=== PATIENT | female | born 1960 | race Caucasian/White ===

== ENCOUNTER 2019-08-04 12:33 | Outpatient (CLI) | payer OTHER, SELFPAY ==
--- NOTE | 2019-08-04 12:42 | MM_ITS ---
WS: [id number] SCREENING DIGITAL MAMMOGRAM WITH CAD HISTORY: SCREEN COMPARISON: 06/28/2018, 05/07/2017 Bilateral CC and MLO views submitted. Computer aided detection analyzed. Breast composition: There are scattered areas of fibroglandular density. Asymmetry on the LEFT CC pro jection measures 11 x 12 mm just medial to the nipple in the anterior breast. There is dense fibrogla ndular tissue in the upper outer quadrant where I believe this nodule may be centered versus in the c entral breast. There is a benign calcification in the RIGHT breast. LEFT breast: Spot compression views (CC and MLO). True ML. Ultrasound to follow if abnormality kojo carvalho. MM/[place] [id number] IMPRESSION: BI-RADS: 0-Incomplete: Need additional imaging evaluation FOLLOW UP: Need Additional Imaging
== END 2019-08-04 12:34 | disposition home or self-care (01) ==
PROVIDERS: PCP Family Medicine; Visit Provider Obstetrics & Gynecology
DX: Z12.31 Encounter for screening mammogram for malignant neoplasm of breast (principal); R92.1 Mammographic calcification found on diagnostic imaging of breast
CPT/HCPCS: 77067

== ENCOUNTER 2019-09-04 08:58 | Outpatient (CLI) | payer OTHER, SELFPAY ==
--- NOTE | 2019-09-04 09:00 | MM_ITS ---
WS: [id number] ADDITIONAL VIEWS LEFT MAMMOGRAM LEFT BREAST ULTRASOUND HISTORY: Left breast asymmetry COMPARISON: 06/28/2018 and 08/04/2019. LEFT MAMMOGRAM: Spot compression views and true ML. Increasing slightly lobulated mass 9:00 axis of the LEFT breast is again identified measuring 15 mm. Dense scattered fibroglandular asymmetries in the upper outer quadrant. No discrete mass. LEFT BREAST ULTRASOUND 2-D and color Doppler imaging submitted. 9:00 axis, 2 cm from the nipple is a lobulated cyst. There is either 2 adjacent cysts or a cyst with a lobulation containing a soft tissue nodule. No increased vascularity in the soft tissue nodule. Thi s is new since the prior ultrasound of 05/21/2017. Due to the lobulated soft tissue nodule further jah luation is necessary. Irregular lobulated soft tissue nodule at 12:00, 3 cm from the nipple measures 1.3 x 1.0 x 1.2 cm. Th ere is no increased vascularity. There are several septations and lobulations. This may be a small co mplex cluster cyst. Due to its shape and appearance biopsy is recommended. There are additional small er cysts throughout the breast. 2. At 9:00 there is a lobulated cyst with soft tissue nodule. Ultrasound biopsy of the nodule is lauren mmended. 3. At 12:00 there is a lobulated soft tissue mass for which ultrasound-guided biopsy is recommended. MM/[place] [id number] IMPRESSION: BI-RADS: 4A-Suspicious: Low FOLLOW UP: Biopsy Recommended 1. There are 2 areas in the LEFT breast for which biopsy and/or aspiration are recommended.
--- NOTE | 2019-09-04 09:30 | US_ITS ---
WS: [id number] ADDITIONAL VIEWS LEFT MAMMOGRAM LEFT BREAST ULTRASOUND HISTORY: Left breast asymmetry COMPARISON: 06/28/2018 and 08/04/2019. LEFT MAMMOGRAM: Spot compression views and true ML. Increasing slightly lobulated mass 9:00 axis of the LEFT breast is again identified measuring 15 mm. Dense scattered fibroglandular asymmetries in the upper outer quadrant. No discrete mass. LEFT BREAST ULTRASOUND 2-D and color Doppler imaging submitted. 9:00 axis, 2 cm from the nipple is a lobulated cyst. There is either 2 adjacent cysts or a cyst with a lobulation containing a soft tissue nodule. No increased vascularity in the soft tissue nodule. Thi s is new since the prior ultrasound of 05/21/2017. Due to the lobulated soft tissue nodule further jah luation is necessary. Irregular lobulated soft tissue nodule at 12:00, 3 cm from the nipple measures 1.3 x 1.0 x 1.2 cm. Th ere is no increased vascularity. There are several septations and lobulations. This may be a small co mplex cluster cyst. Due to its shape and appearance biopsy is recommended. There are additional small er cysts throughout the breast. 2. At 9:00 there is a lobulated cyst with soft tissue nodule. Ultrasound biopsy of the nodule is lauren mmended. 3. At 12:00 there is a lobulated soft tissue mass for which ultrasound-guided biopsy is recommended. US/US breast LT limited* [id number] IMPRESSION: BI-RADS: 4A-Suspicious: Low FOLLOW UP: Biopsy Recommended 1. There are 2 areas in the LEFT breast for which biopsy and/or aspiration are recommended.
== END 2019-09-04 08:59 | disposition home or self-care (01) ==
LOC: RADSHAW 09:07
PROVIDERS: PCP Family Medicine; Visit Provider Obstetrics & Gynecology
DX: N64.89 Other specified disorders of breast (principal)
CPT/HCPCS: 76642; 77065

== ENCOUNTER 2019-09-17 14:50 | Outpatient (CLI) | payer OTHER, SELFPAY ==
--- NOTE | 2019-09-17 15:00 | US_ITS ---
WS: [id number] ULTRASOUND-GUIDED LEFT BREAST BIOPSY x 2 HISTORY: abnormal u/s and mammo COMPARISON: 09/04/2019, 05/21/2017 and 08/04/2019 Procedure, risks and complications are explained to the patient. Medications are reviewed. Consent is obtained. Masses in the LEFT breast are localized with ultrasound. Skin is cleansed with ChloraPrep and anesthe tized with 1% buffered lidocaine. Small dermatome is made. Under sterile conditions mass is biopsied with a 14-gauge Achieve needle. Multiple core biopsies are performed. Material placed in formalin and sent to pathology for review. No complications encountered. LEFT breast mass at 9:00: Lobulated soft tissue mass with a solid component. Biopsy performed in the mass nearly completely collapses after the first few biopsies. A clip is placed. LEFT breast mass at 12:00, lobulated cystic mass nearly completely collapses after biopsy. A clip is placed. Breast tissue marker (Bard ultrasound enhanced ribbon): Yes within each biopsy site. Patient left the radiology suite with no complications. Patient is instructed to return to [facility] or [facility] with any concerns. 1. Uncomplicated core needle biopsy LEFT breast mass at 9:00. 2. Uncomplicated core needle biopsy LEFT breast mass at 12:00. US/[place] [id number] IMPRESSION: PATHOLOGY: Fibrocystic change with adipose fat. No malignancy. RECOMMENDATION: Diagnostic LEFT mammogram 6 months. PATHOLOGY: Fibrocystic changes with adipose fat. No malignancy. RECOMMENDATION: Diagnostic LEFT mammogram 6 months.
== END 2019-09-17 14:51 | disposition home or self-care (01) ==
LOC: RAD 14:53
PROVIDERS: PCP Family Medicine; Visit Provider Obstetrics & Gynecology
DX: R92.8 Other abnormal and inconclusive findings on diagnostic imaging of breast (principal); N63.25 Unspecified lump in the left breast, overlapping quadrants; N60.12 Diffuse cystic mastopathy of left breast
CPT/HCPCS: 19083; 19084; 88305; J2001

== ENCOUNTER → 2019-09-29 15:20 | Outpatient (BNVA) | payer OTHER, SELFPAY | PROVIDERS: PCP Family Medicine; Visit Provider Obstetrics & Gynecology | DX: N39.41 Urge incontinence (principal); Z78.0 Asymptomatic menopausal state | CPT/HCPCS: 80053; 81000; 87077; 87086; 87186 ==

== ENCOUNTER 2020-05-19 15:31 | Outpatient (CLI) | payer OTHER, SELFPAY | END 2020-05-19 15:32 | disposition home or self-care (01) | LOC: SPT 15:31 | PROVIDERS: PCP Family Medicine; Visit Provider Orthopaedic Surgery | DX: Z46.89 Encounter for fitting and adjustment of other specified devices (principal); S52.591D Other fractures of lower end of right radius, subsequent encounter for closed fracture with routine healing; X58.XXXD Exposure to other specified factors, subsequent encounter | CPT/HCPCS: 73110; L3908 ==

== ENCOUNTER → 2020-06-09 14:36 | Outpatient (BNVA) | payer OTHER, SELFPAY | PROVIDERS: PCP Family Medicine; Visit Provider Orthopaedic Surgery | DX: S52.501A Unspecified fracture of the lower end of right radius, initial encounter for closed fracture (principal) | CPT/HCPCS: 73110 ==

== ENCOUNTER 2020-10-25 13:40 | Outpatient (CLI) | payer OTHER, SELFPAY ==
--- NOTE | 2020-10-25 13:49 | MM_ITS ---
WS: [id number] BILATERAL DIGITAL DIAGNOSTIC MAMMOGRAM MAMMOGRAPHY WITH CAD CLINICAL INFORMATION: Z87.898 - Personal history of other specified condition COMPARISON: August 04, 2019 TECHNIQUE: Bilateral CC, MLO, and ML views. FINDINGS: Scattered fibroglandular densities bilaterally. Punctate and lucent centered calcifications. Biopsy m arkers left breast. No suspicious focal mass, asymmetry, calcifications, or architectural distortion. No evidence of lyn gnancy. MM/[place] [id number] IMPRESSION: BI-RADS: 2-Benign FOLLOW UP: 1 Year Follow-up Recommend return to annual screening mammography.
== END 2020-10-25 13:41 | disposition home or self-care (01) ==
LOC: RADSHAW 13:46
PROVIDERS: PCP Family Medicine; Visit Provider Obstetrics & Gynecology
DX: Z85.3 Personal history of malignant neoplasm of breast (principal); N64.89 Other specified disorders of breast
CPT/HCPCS: 77066

== ENCOUNTER 2021-12-14 13:41 | Outpatient (CLI) | payer OTHER, SELFPAY ==
--- NOTE | 2021-12-14 13:49 | MM_ITS ---
WS: [id number] BILATERAL SCREENING DIGITAL TOMOSYNTHESIS MAMMOGRAM WITH CAD HISTORY: SCREENING COMPARISON: 2020, 09/04/2019, 6 08/04/2019 Bilateral CC and MLO views with tomosynthesis and synthetic mammography submitted. Computer aided det ection analyzed. Breast composition: The breasts are heterogeneously dense, which may obscure small masses. No suspici ous masses, microcalcifications or architectural distortion. Biopsy clips in the LEFT breast. There a re several calcifications and nodules which are all stable. No new area of distortion or mass. MM/[place] [id number] IMPRESSION: BI-RADS: 2-Benign FOLLOW UP: 1 Year Follow-up
== END 2021-12-14 13:42 | disposition home or self-care (01) ==
LOC: RAD 13:45
PROVIDERS: PCP Family Medicine; Visit Provider Obstetrics & Gynecology
DX: Z12.31 Encounter for screening mammogram for malignant neoplasm of breast (principal)
CPT/HCPCS: 77063; 77067

== ENCOUNTER → 2022-01-06 08:25 | Outpatient (BNVA) | payer OTHER, SELFPAY | PROVIDERS: PCP Family Medicine; Visit Provider Clinical Nurse Specialist Adult Health | DX: R32 Unspecified urinary incontinence (principal); N30.01 Acute cystitis with hematuria; E78.5 Hyperlipidemia, unspecified | CPT/HCPCS: 81000; 87077; 87086; 87184 ==

== ENCOUNTER → 2022-10-10 12:38 | Outpatient (BNVA) | payer OTHER, SELFPAY | PROVIDERS: PCP Family Medicine; Visit Provider Family Medicine | DX: E03.9 Hypothyroidism, unspecified (principal); F41.8 Other specified anxiety disorders; E78.5 Hyperlipidemia, unspecified; I10 Essential (primary) hypertension | CPT/HCPCS: 80053; 80061; 84443; 85025 ==

== ENCOUNTER 2022-12-22 14:11 | Outpatient (CLI) | payer OTHER, SELFPAY ==
--- NOTE | 2022-12-22 14:23 | MM_ITS ---
WS: [id number] BILATERAL 3D TOMOSYNTHESIS DIGITAL SCREENING MAMMOGRAPHY WITH CAD CLINICAL INFORMATION: SCREENING HISTORY: Screening mammogram. No current complaints. COMPARISON: 12/14/2021 TECHNIQUE: Bilateral CC and MLO views. FINDINGS: The breasts are composed of heterogeneous fibroglandular density tissue, which can limit the detectio n of small underlying mass lesions. No suspicious mass, asymmetry, calcifications, or architectural d istortion. No evidence of malignancy. Biopsy clips LEFT breast. Incidental punctate and lucent center ed calcifications. Stable nodular RIGHT breast tissue. IMPRESSION: MM/[place] [id number] BI-RADS: 2-Benign FOLLOW UP: 1 Year Follow-up Recommend return to annual screening mammography.
== END 2022-12-22 14:12 | disposition home or self-care (01) ==
PROVIDERS: PCP Family Medicine; Visit Provider Family Medicine
DX: Z12.31 Encounter for screening mammogram for malignant neoplasm of breast (principal)
CPT/HCPCS: 77063; 77067

== ENCOUNTER → 2023-12-03 11:28 | Outpatient (BNVA) | payer OTHER, SELFPAY | PROVIDERS: PCP Family Medicine; Visit Provider Family Medicine | DX: Z00.00 Encounter for general adult medical examination without abnormal findings (principal); I10 Essential (primary) hypertension; E78.5 Hyperlipidemia, unspecified; F41.8 Other specified anxiety disorders; E03.9 Hypothyroidism, unspecified | CPT/HCPCS: 80053; 80061; 84443; 85025 ==

== ENCOUNTER 2024-06-20 11:33 | Outpatient (CLI) | payer OTHER, SELFPAY ==
--- NOTE | 2024-06-20 11:37 | XR_ITS ---
WS: [id number] Exam: XR chest 2V* [id number] Date/Time of Exam: 06/20/2024 11:38 AM Reason For Exam: R05.9 - Cough, unspecified Comparison 07/31/2008. Lungs are clear and fully expanded. Normal cardiomediastinal silhouette and regional bony elements. No pleural effusions. XR/XR chest 2V* [id number] IMPRESSION: 1. Normal chest.
[2024-06-20 12:28] LABS: Basophils # 0.1 10^3/uL (0.0-0.1); Basophils % 0.8 %; Eosinophils # 1.1 10^3/uL (0.0-0.8); Eosinophils % 9.1 %; Hematocrit 34.8 % (36-47); Lymphocytes # 2.5 10^3/uL (0.8-4.8); Lymphocytes % 20.9 %; Mean Corpuscular HGB Conc 33.3 g/dL (30-55); Mean Corpuscular Hemoglobin 33.9 pg (27-33); Mean Corpuscular Volume 101.8 fl (85-98); Monocytes # 0.5 10^3/uL (0.2-0.9); Monocytes % 3.9 %; Neutrophils # 7.59 10^3/uL (1.8-7.7); Neutrophils % 63.7 %; Nucleated Red Blood Cells % 0.2 %; Platelet Count 330 10^3/cmm (157-399); Red Blood Count 3.42 10^6/uL (3.85-5.65); White Blood Count 11.94 10^3/uL (3.29-11.43)
[2024-06-20 12:29] LABS: Erythrocyte Sedimentation Rate 61 mm/hr (0-15)
[2024-06-20 12:45] LABS: Alanine Aminotransferase 16 U/L (0-33); Albumin Level 3.9 g/dL (3.5-5.2); Alkaline Phosphatase 75 U/L (35-105); Anion Gap 15.2 (5-19); Aspartate Amino Transferase 14 U/L (0-32); Blood Urea Nitrogen 12 mg/dL (8-23); C Reactive Protein 49.8 mg/L (0.0-4.9); Calcium 9.4 mg/dL (8.5-10.5); Carbon Dioxide 27 mmol/L (22-29); Chloride 102 mmol/L (98-107); Globulin 3.4 g/dL (1.3-4.6); Glomerular Filtration Rate 55.8 mL/min (90-130); Glucose 104 mg/dL (65-115); Osmolality Calculated 292 mOsm/kg (285-295); Potassium 3.2 mmol/L (3.5-5.1); Sodium 141 mmol/L (136-145); Total Bilirubin 0.3 mg/dL (0.15-1.2); Total Protein 7.3 g/dL (6.6-8.7)
== END 2024-06-20 11:34 | disposition home or self-care (01) ==
LOC: LAB 11:35
PROVIDERS: PCP Family Medicine; Visit Provider Family Medicine
DX: R05.9 Cough, unspecified (principal); R09.81 Nasal congestion; M79.10 Myalgia, unspecified site; R50.9 Fever, unspecified; E03.9 Hypothyroidism, unspecified; M19.90 Unspecified osteoarthritis, unspecified site
CPT/HCPCS: 36415; 71046; 80053; 85025; 85651; 86140; 86618; 86666; 86757; 86777

== ENCOUNTER 2024-07-15 13:25 | Emergency (ER) | payer OTHER, SELFPAY ==
--- NOTE | 2024-07-15 13:30 | ECG_ITS ---
[facility] [facility] 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 Measurements Intervals [place] Rate: 98 P: 56 CT: 165 QRS: 42 QRSD: 93 T: 44 QT: 363 QTc: 464 Interpretive Statements SINUS RHYTHM WITH SINUS ARRHYTHMIA possible old septal RI INCOMPLETE RIGHT BUNDLE BRANCH BLOCK [90+ ms QRS DURATION, TERMINAL R IN V1/V2, 40+ ms S IN I/aVL/V4/V5/V6] NONSPECIFIC ST & T-WAVE ABNORMALITY No previous ECG available for comparison Electronically Signed On 07-15-2024 21:20:03 CDT by Tucker Dodge M.D. [id number] [id number]
[2024-07-15 13:36] VITALS: BP 160/72; PULSE 94; RESP 20; TEMP 36.9; O2SAT 91
[2024-07-15 14:53] LABS: Basophils # 0.1 10^3/uL (0.0-0.1); Basophils % 0.4 %; Eosinophils # 0.3 10^3/uL (0.0-0.8); Eosinophils % 1.1 %; Hematocrit 34.1 % (36-47); Lymphocytes # 1.2 10^3/uL (0.8-4.8); Lymphocytes % 3.8 %; Mean Corpuscular HGB Conc 32.8 g/dL (30-55); Mean Corpuscular Hemoglobin 34.5 pg (27-33); Mean Corpuscular Volume 104.9 fl (85-98); Mean Platelet Volume 10.1 fL (7.4-10.4); Monocytes # 0.6 10^3/uL (0.2-0.9); Monocytes % 1.9 %; Neutrophils # 28.53 10^3/uL (1.8-7.7); Neutrophils % 91.5 %; Nucleated Red Blood Cells % 0 %; Platelet Count 274 10^3/cmm (157-399); Red Blood Count 3.25 10^6/uL (3.85-5.65); Red Cell Distribution Width 14.3 % (12.1-15.1)
[2024-07-15 15:03] LABS: White Blood Count 31.16 10^3/uL (3.29-11.43)
[2024-07-15 15:13] LABS: Alanine Aminotransferase 20 U/L (0-33); Alkaline Phosphatase 81 U/L (35-105); Anion Gap 17.8 (5-19); Aspartate Amino Transferase 19 U/L (0-32); Blood Urea Nitrogen 9 mg/dL (8-23); Calcium 9.2 mg/dL (8.5-10.5); Carbon Dioxide 25 mmol/L (22-29); Chloride 104 mmol/L (98-107); Creatinine Clr Calc Pharmacy 71.4512; Globulin 2.9 g/dL (1.3-4.6); Glomerular Filtration Rate 55.8 mL/min (90-130); Glucose 198 mg/dL (65-115); Osmolality Calculated 300 mOsm/kg (285-295); Potassium 3.8 mmol/L (3.5-5.1); Sodium 143 mmol/L (136-145); Total Bilirubin 0.5 mg/dL (0.15-1.2); Total Protein 6.9 g/dL (6.6-8.7)
[2024-07-15 15:20] LABS: Troponin(5th) Baseline 11 ng/L (0-10)
--- NOTE | 2024-07-15 16:14 | XRR_ITS ---
PROCEDURE INFORMATION: Exam: XR Chest Exam date and time: 07/15/2024 4:32 PM Age: 64 years old Clinical indication: Pain; Angina pectoris; Additional info: Cp TECHNIQUE: Imaging protocol: Radiologic exam of the chest. Views: 1 view. COMPARISON: CR XR chest 2V* [id number] 06/20/2024 11:43 AM FINDINGS: Lungs: Unremarkable. No consolidation. Pleural spaces: Unremarkable. No pleural effusion. No pneumothorax. Heart/Mediastinum: Unremarkable. No cardiomegaly. Bones/joints: Unremarkable. XR/XR chest 1V portable [id number] IMPRESSION: No acute findings.
--- NOTE | 2024-07-15 16:35 | ECG_ITS ---
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 Measurements Intervals [place] Rate: 90 P: 65 [place]: 174 QRS: 51 QRSD: 93 T: 61 QT: 377 QTc: 463 Interpretive Statements SINUS RHYTHM WITH SINUS ARRHYTHMIA INCOMPLETE RIGHT BUNDLE BRANCH BLOCK [90+ ms QRS DURATION, TERMINAL R IN V1/V2, 40+ ms S IN I/aVL/V4/V5/V6] MINIMAL ST DEPRESSION [0.025+ mV ST DEPRESSION] Compared to ECG 07/15/2024 13:34:19 ST (T wave) deviation now present T-wave abnormality no longer present Electronically Signed On 07-16-2024 08:43:42 CDT by Tucker Dodge M.D. [email or web address] [id number]
[2024-07-15 17:23] LABS: Troponin 5 2HR 9.51 ng/L (0-10); Troponin 5 2HR Delta -1.49 ABS# (0-10)
--- NOTE | 2024-07-15 17:31 | CTR_ITS ---
PROCEDURE INFORMATION: Exam: CTA Chest With Contrast Exam date and time: 07/15/2024 6:12 PM Age: 64 years old Clinical indication: Pain; Chest pressure; Additional info: Chest pain TECHNIQUE: Imaging protocol: Computed tomographic angiography of the chest with contrast. Exam focused on the arteries. 3D rendering (Not supervised by radiologist): MIP and/or 3D reconstructed images were created by the technologist. Radiation optimization: All CT scans at this facility use at least one of these dose optimization techniques: automated exposure control; mA and/or kV adjustment per patient size (includes targeted exams where dose is matched to clinical indication); or iterative reconstruction. Contrast material: OMNIPAQUE 350; Contrast volume: 78 ml; Contrast route: INTRAVENOUS (IV); COMPARISON: CR XR chest 1V portable [id number] 07/15/2024 4:32 PM RADIATION DOSE METRICS: Total DLP (mGy-cm): 459.79 FINDINGS: Pulmonary arteries: Normal. No pulmonary emboli. Aorta: Unremarkable. No aortic aneurysm. No aortic dissection. Lungs: Unremarkable. No consolidation. No masses. Pleural spaces: Unremarkable. No pneumothorax. No pleural effusion. Heart: Unremarkable. No cardiomegaly. No pericardial effusion. Lymph nodes: Unremarkable. No enlarged lymph nodes. Diaphragm: Small hiatal hernia. Liver: Hepatic steatosis. Bones/joints: Unremarkable. No acute fracture. Soft tissues: Unremarkable. CT/CT angio chest PE protcl [id number] IMPRESSION: No acute findings including no evidence of pulmonary embolism.
[2024-07-15 18:00] VITALS: BP 157/74; PULSE 80; O2SAT 95
[2024-07-15] MEDS: iohexol 350 mg/mL 500 mL Btl (per mL) IV (18:28)
[2024-07-15] MEDS: sodium chloride 0.9% 1,000 ML 999 ML IV (19:07)
--- NOTE | 2024-07-15 20:24 | ECG_ITS ---
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 Measurements Intervals [place] Rate: 81 P: 56 ID: [id number] QRS: 35 QRSD: 79 T: 52 QT: 385 QTc: 448 Interpretive Statements SINUS RHYTHM POSSIBLE RIGHT VENTRICULAR CONDUCTION DELAY [RSR (QR) IN V1/V2] SEPTAL MYOCARDIAL INFARCTION , OF INDETERMINATE AGE [40+ ms Q WAVE IN V1/V2] Compared to ECG 07/15/2024 16:35:22 Myocardial infarct finding now present Sinus arrhythmia no longer present Incomplete right bundle-branch block no longer present ST (T wave) deviation no longer present Electronically Signed On 07-16-2024 08:41:18 CDT by Tucker Dodge M.D. [id number] [id number]
--- NOTE | 2024-07-15 20:34 | ED_ITS ---
HPI - Chest Pain 2 General: Chief Complaint: Chest Pain Stated Complaint: chest pain/sosb Time Seen by Provider: 07/15/24 16:32 History of Present Illness: 64-year-old female is presenting with an episode of chest pain this morning. She states has been having a cough for the past 2 months, was treated for it by PCP with doxycycline and prednisone over 3 weeks ago. She has had some persistent cough and some low-grade fevers on and off. Had a tick panel sent has been follow-up with her primary doctor but this morning had a cough that resulted in anterior chest pain went to an urgent care who referred her to the emergency department for possible PE workup. She states her pain has resolved she denies any dyspnea no fever at this time. No nausea no vomiting no abdominal pain no rashes no headache no sore throat or earache no urinary symptoms. Associated symptoms: Deny abdominal pain, dyspnea, fever(s), nausea, palpitations or vomiting Related Data Previous Rx's ?Medication ?Instructions ?Recorded losartan 100 1 tab PO DAILY #90 tabs 11/24 12/17 mg-hydrochlorothiazide 25 mg tablet lovastatin 20 mg tablet 20 mg PO DAILY #90 tabs 11/24 12/17 escitalopram oxalate 20 mg tablet 20 mg PO DAILY #90 t abs 04/10/24 zolpidem 10 mg tablet (Ambien) 10 mg PO .nightly #30 t abs 04/10/24 losartan 100 mg tablet 100 mg PO DAILY #30 tabs Allergies Allergy/AdvReac Type Severity Reaction Status Date / Time No Known Allergies Allergy Verified 06/19/24 14:32 Review of Systems 2 Const: Reports: chills and body aches; Denies: fever(s) Eyes: Denies: change in vision ENMT: Denies: throat pain Card: Reports: chest pain; Denies: palpitations, irregular heart rhythm, edema, swelling of feet/ankles or dyspnea on exertion Resp: Reports: non-productive cough; Denies: dyspnea or wheezing GI: Denies: abdominal pain, nausea, vomiting or diarrhea : Denies: flank pain, difficulty voiding, dysuria, urinary frequency, urinary urgency or urinary hesitancy Musc: Denies: back pain or extremity pain Skin/Breast: Denies: rash Neuro: Denies: headache(s), numbness in extremities, weakness in extremities or difficulty walking [facility] 2 PFSH: Medical History Depression with anxiety Hyperlipidemia Hypertension Insomnia Menopause Surgical History History of dilation and curettage (~1987) Treatment of miscarriage History of total vaginal hysterectomy (~1989) Performed due to abnormal Paps Family History Father Hypertension Hypercholesteremia Mother Hypertension Hypercholesteremia Breast cancer Grandmother Diabetes maternal Social History (Updated 10/23/22 @ 12:23 by Natalie Olsen LPN) Smoking and tobacco/nicotine status: never used tobacco/nicotine Alcohol intake: current Alcohol intake frequency: holidays/special occasions only Substance/Drug Use: never Physical Exam 2 Const: COMMON NORMALS: no acute distress, patient oriented x3 and alert G ENERAL APPEARANCE: cooperative and comfortable HENMT: COMMON NORMALS: normocephalic and atraumatic HEAD & SCALP: n ormocephalic and atraumatic Eye: COMMON NORMALS: Equal, round and reactive pupils present, EOMs intact bilaterally and conjunctivae normal CONJUNCTIVA: Yes conjunctivae normal P UPIL: Yes Equal, round and reactive pupils present Neck/C-Spine: COMMON NORMALS: full ROM, no lymphadenopathy, supple, no meningeal signs and no JVD Lymph: LYMPHATIC: no lymphadenopathy noted Resp: COMMON NORMALS: normal respiratory effort, No retractions, No use of accessory muscles and clear to auscultation bilaterally AUSCULTATION: clear to auscultation bilaterally Cardio: COMMON NORMALS: no JVD, regular rate, regular rhythm, S1 normal heart sound present and S2 normal heart sound present RATE: regular rate RHYTHM: regular rhythm HEART SOUNDS: S1 normal heart sound present and S2 normal heart sound present GI: COMMON NORMALS: Normal to inspection, nondistended, normoactive bowel sounds present, Soft to palpation and non-tender PALPATION: Yes Soft to palpation : COMMON NORMALS: Yes no CVA tenderness BLADDER/KIDNEY EXAM: Yes no CVA tenderness Back/Pelvis: COMMON NORMALS: no CVA tenderness Extremity: COMMON NORMALS: normal to inspection, full ROM and capillary refill normal Neuro: COMMON NORMALS: patient oriented x3 SENSORIUM/ORIENTATION: Yes alert MENINGEAL SIGNS: Yes no meningeal signs Skin: COMMON NORMALS: no rashes or lesions noted GENERAL SKIN EXAM: no rashes or lesions noted Course 2 Vital Signs: Vital signs: Vital Signs Temperature 98.5 F 07/15/24 13:36 Pulse Rate 82 07/15/24 20:37 Respiratory Rate 20 H 07/15/24 13:36 Blood Pressure 181/75 07/15/24 20:37 Pulse Oximetry 95 07/15/24 20:37 Oxygen Delivery Me thod Room Air 07/15/24 20:37 MDM - Chest Pain Medical Decision Making Workup remarkable for CTA that demonstrates no acute findings no PE no pulmonary edema no pneumonia. She does have a leukocytosis that is marked of 31 but no other fever or focus for infectious process labs otherwise without significant abnormalities. Notably troponin negative x 2 rules out myocardial injury or infarction. Discussed results with the patient and plan for outpatient follow- up with hematology, will refer will provide referral. Case discussed with oncology Dr. Pedro who recommends outpatient follow-up and they can follow-up with her. Otherwise patient is comfortable stable for discharge and outpatient follow-up. Lab Data 07/15/24 14:38 07/15/24 14:38 Radiology Impressions Chest X-Ray 07/15/24 16:14 IMPRESSION: No acute findings. Chest CTA 07/15/24 17:31 IMPRESSION: No acute findings including no evidence of pulmonary embolism. Laboratory Results WBC 31.16 10^3/uL (3.29-11.43) H* 07/15/24 14:38 RBC 3.25 10^6/uL (3.85-5.65) L 07/15/24 14:38 Hgb 11.20 g/dL (11.27-16.99) L 07/15/24 14:38 Hct 34.1 % (36-47) L 07/15/24 14:38 MCV 104.9 fl (85-98) H 07/15/24 14:38 MCH 34.5 pg (27-33) H 07/15/24 14:38 MCHC 32.8 g/dL (30-55) 07/15/24 14:38 RDW 14.3 % (12.1-15.1) 07/15/24 14:38 Plt Count 274 10^3/cmm (157-399) 07/15/24 14:38 MPV 10.1 fL (7.4-10.4) 07/15/24 14:38 Neut % (Auto) 91.5 % 07/15/24 14:38 Lymph % (Auto) 3.8 % 07/15/24 14:38 [place] % (Auto) 1.9 % 07/15/24 14:38 Eos % (Auto) 1.1 % 07/15/24 14:38 Baso % (Auto) 0.4 % 07/15/24 14:38 Neut # (Auto) 28.53 10^3/uL (1.8-7.7) H 07/15/24 14:38 Lymph # (Auto) 1.2 10^3/uL (0.8-4.8) 07/15/24 14:38 [place] # (Auto) 0.6 10^3/uL (0.2-0.9) 07/15/24 14:38 Eos # (Auto) 0.3 10^3/uL (0.0-0.8) 07/15/24 14:38 Baso # (Auto) 0.1 10^3/uL (0.0-0.1) 07/15/24 14:38 Nucleated RBC % (auto) 0 % 07/15/24 14:38 Nucleated RBCs # 0.0 /100WBC 07/15/24 14:38 Sodium 143 mmol/L (136-145) 07/15/24 14:38 Potassium 3.8 mmol/L (3.5-5.1) 07/15/24 14:38 Chloride 104 mmol/L (98-107) 07/15/24 14:38 Carbon Dioxide 25 mmol/L (22-29) 07/15/24 14:38 Anion Gap 17.8 (5-19) 07/15/24 14:38 BUN 9 mg/dL (8-23) 07/15/24 14:38 Creatinine 1.0 mg/dL (0.5-0.9) H 07/15/24 14:38 GFR Calculation 55.8 mL/min (90-130) L 07/15/24 14:38 Glucose 198 mg/dL (65-115) H 07/15/24 14:38 Calculated Osmolality 300 mOsm/kg (285-295) H 07/15/24 14:38 Calcium 9.2 mg/dL (8.5-10.5) 07/15/24 14:38 Total Bilirubin 0.5 mg/dL (0.15-1.2) 07/15/24 14:38 AST 19 U/L (0-32) 07/15/24 14:38 ALT 20 U/L (0-33) 07/15/24 14:38 Alkaline Phosphatase 81 U/L (35-105) 07/15/24 14:38 Troponin T Baseline 11 ng/L (0-10) H 07/15/24 14:38 Troponin T 120 Minute 9.51 ng/L (0-10) 07/15/24 16:38 Delta Troponin T -1.49 ABS# (0-10) L 07/15/24 16:38 Total Protein 6.9 g/dL (6.6-8.7) 07/15/24 14:38 Albumin 4.0 g/dL (3.5-5.2) 07/15/24 14:38 Globulin 2.9 g/dL (1.3-4.6) 07/15/24 14:38 All radiology interpretation(s) finalized by discharge Discharge Plan Discharge Patient Disposition: Home Clinical Impression: Chest pain, Leukocytosis, unspecified Condition: Stable Prescriptions: No Action lovastatin 20 mg tablet 20 mg PO DAILY Qty: 90 3RF losartan-hydrochlorothiazide 100-25 mg tablet 1 tab PO DAILY Qty: 90 3RF escitalopram oxalate 20 mg tablet 20 mg PO DAILY Qty: 90 3RF zolpidem [Ambien] 10 mg tablet 10 mg PO .nightly Qty: 30 5RF losartan 100 mg tablet 100 mg PO DAILY Qty: 30 1RF Discharge Orders: Discharge ED (Routine); Ordered 07/15/24 Ordered By: Hola Perez Referrals: Brooke Pedro MD [Hospitalist] - Javier Mitchell DO [Primary Care Provider] - Patient Instructions: Leukocytosis (ED) Print Language: [place] Arabian Coding Level of Care Code ED Landing Signal Officer for Jocelyng Earlene
[2024-07-15 20:37] VITALS: BP 181/75; PULSE 82; O2SAT 95
[2024-07-15 21:00] VITALS: BP 181/75; PULSE 77; O2SAT 96
--- NOTE | 2024-07-16 08:36 | DCPLANNER ---
Message sent to PCP
== END 2024-07-15 21:07 | disposition home or self-care (01) ==
PROVIDERS: Family Medicine; Emergency Provider Emergency Medicine; PCP Family Medicine
DX: R07.9 Chest pain, unspecified (principal); D72.829 Elevated white blood cell count, unspecified; E78.5 Hyperlipidemia, unspecified; I10 Essential (primary) hypertension
CPT/HCPCS: 36415; 71045; 71275; 80053; 84484; 85025; 93005; 96360; 96361; 99285; J7030

== ENCOUNTER 2024-07-23 15:29 | Outpatient (CLI) | payer OTHER, SELFPAY ==
[2024-07-23 16:01] LABS: Basophils # 0.2 10^3/uL (0.0-0.1); Basophils % 0.9 %; Eosinophils # 1.3 10^3/uL (0.0-0.8); Eosinophils % 5.9 %; Hematocrit 30.3 % (36-47); Lymphocytes # 2.5 10^3/uL (0.8-4.8); Lymphocytes % 11.3 %; Mean Corpuscular HGB Conc 32.3 g/dL (30-55); Mean Corpuscular Hemoglobin 33.9 pg (27-33); Mean Corpuscular Volume 104.8 fl (85-98); Mean Platelet Volume 9.7 fL (7.4-10.4); Monocytes % 4.6 %; Neutrophils # 15.69 10^3/uL (1.8-7.7); Neutrophils % 72.4 %; Nucleated Red Blood Cells % 0.1 %; Platelet Count 404 10^3/cmm (157-399); Red Blood Count 2.89 10^6/uL (3.85-5.65); Red Cell Distribution Width 14.4 % (12.1-15.1); White Blood Count 21.69 10^3/uL (3.29-11.43)
[2024-07-23 17:14] LABS: Alanine Aminotransferase 14 U/L (0-33); Albumin Level 3.5 g/dL (3.5-5.2); Alkaline Phosphatase 77 U/L (35-105); Anion Gap 15.6 (5-19); Aspartate Amino Transferase 12 U/L (0-32); Blood Urea Nitrogen 10 mg/dL (8-23); Calcium 9.2 mg/dL (8.5-10.5); Carbon Dioxide 23 mmol/L (22-29); Chloride 105 mmol/L (98-107); Globulin 3.7 g/dL (1.3-4.6); Glomerular Filtration Rate 72.2 mL/min (90-130); Glucose 104 mg/dL (65-115); Osmolality Calculated 289 mOsm/kg (285-295); Potassium 3.6 mmol/L (3.5-5.1); Sodium 140 mmol/L (136-145); Total Bilirubin 0.4 mg/dL (0.15-1.2); Total Protein 7.2 g/dL (6.6-8.7)
== END 2024-07-23 15:30 | disposition home or self-care (01) ==
PROVIDERS: PCP Family Medicine; Visit Provider Family Medicine
DX: E87.6 Hypokalemia (principal); R71.8 Other abnormality of red blood cells; M79.10 Myalgia, unspecified site; R05.9 Cough, unspecified; R50.9 Fever, unspecified
CPT/HCPCS: 36415; 80053; 85025; 86140

== ENCOUNTER 2024-07-28 13:38 | Oncology outpatient (recurring) (ONCR) | payer OTHER, SELFPAY ==
[2024-07-28 14:28] LABS: Basophils # 0.2 10^3/uL (0.0-0.1); Basophils % 1.4 %; Eosinophils # 1.8 10^3/uL (0.0-0.8); Eosinophils % 13.8 %; Hematocrit 32.4 % (36-47); Lymphocytes # 2.4 10^3/uL (0.8-4.8); Lymphocytes % 18.6 %; Mean Corpuscular HGB Conc 32.4 g/dL (30-55); Mean Corpuscular Hemoglobin 33.8 pg (27-33); Mean Corpuscular Volume 104.2 fl (85-98); Mean Platelet Volume 9.8 fL (7.4-10.4); Monocytes # 0.7 10^3/uL (0.2-0.9); Monocytes % 5.6 %; Neutrophils # 7.45 10^3/uL (1.8-7.7); Neutrophils % 56.9 %; Nucleated Red Blood Cells % 0.3 %; Platelet Count 427 10^3/cmm (157-399); Red Blood Count 3.11 10^6/uL (3.85-5.65); Red Cell Distribution Width 14.2 % (12.1-15.1); White Blood Count 13.09 10^3/uL (3.29-11.43)
[2024-07-28 15:05] LABS: Vitamin B12 420 pg/mL (232-1245)
[2024-07-28 15:12] LABS: Folate Level 11.1 ng/mL (4.8-37.3)
[2024-07-28 15:36] LABS: Alanine Aminotransferase 15 U/L (0-33); Albumin Level 3.7 g/dL (3.5-5.2); Alkaline Phosphatase 72 U/L (35-105); Anion Gap 15.8 (5-19); Aspartate Amino Transferase 17 U/L (0-32); Blood Urea Nitrogen 11 mg/dL (8-23); Calcium 9.7 mg/dL (8.5-10.5); Carbon Dioxide 25 mmol/L (22-29); Chloride 105 mmol/L (98-107); Ferritin 232 ng/mL (15-150); Globulin 3.7 g/dL (1.3-4.6); Glomerular Filtration Rate 72.2 mL/min (90-130); Glucose 100 mg/dL (65-115); Iron 91 ug/dL (37-145); Osmolality Calculated 293 mOsm/kg (285-295); Percent Saturation 33.4 % (20-50); Potassium 3.8 mmol/L (3.5-5.1); Sodium 142 mmol/L (136-145); Total Bilirubin 0.2 mg/dL (0.15-1.2); Total Iron Binding Capacity 272 mcg/dl; Total Protein 7.4 g/dL (6.6-8.7); Unsaturated Iron Binding 181 ug/dL (112-347)
[2024-07-29 07:29] LABS: PROTEIN, TOTAL 7.3 g/dL (6.1-8.1)
[2024-07-30 12:59] LABS: ALBUMIN 3.6 g/dL (3.8-4.8); ALPHA 1 GLOBULIN 0.4 g/dL (0.2-0.3); ALPHA 2 GLOBULIN 0.8 g/dL (0.5-0.9); BETA 1 GLOBULIN 0.4 g/dL (0.4-0.6); BETA 2 GLOBULIN 0.5 g/dL (0.2-0.5); GAMMA GLOBULIN 1.5 g/dL (0.8-1.7)
== END 2024-07-28 23:59 | disposition home or self-care (01) ==
LOC: ONCMED 13:38
PROVIDERS: PCP Family Medicine; Visit Provider Internal Medicine Medical Oncology
DX: D64.9 Anemia, unspecified (principal); R03.0 Elevated blood-pressure reading, without diagnosis of hypertension; D75.89 Other specified diseases of blood and blood-forming organs; D72.829 Elevated white blood cell count, unspecified
CPT/HCPCS: 36415; 80053; 82607; 82728; 82746; 83540; 83550; 84155; 84165; 85025

== ENCOUNTER 2024-08-17 13:26 | Inpatient (IN) | payer OTHER, SELFPAY ==
[2024-08-17] VITALS (10 sets, daily range): BP systolic 162–206; BP diastolic 71–87; PULSE 94–110; RESP 18–21; TEMP 37.6–37.7; O2SAT 88–96; BMI 32.5; BMI 32.9
--- NOTE | 2024-08-17 13:50 | ECG_ITS ---
[facility] [facility] Test Date: 2024-08-17 Pat Name: Amanda Mohr Department: Room: Gender: Female Class A Regional Drivers: : 1960 Requested By: Abram Echeverria Order Number: [id number] Willis MD: VLADIMIR BALDERAS Measurements Intervals [place] Rate: 103 P: 65 [place]: 185 QRS: 58 QRSD: 92 T: 83 QT: 368 QTc: 484 Interpretive Statements SINUS TACHYCARDIA POSSIBLE LEFT ATRIAL ENLARGEMENT [-0.1mV P-WAVE IN V1/V2] INCOMPLETE RIGHT BUNDLE BRANCH BLOCK [90+ ms QRS DURATION, TERMINAL R IN V1/V2, 40+ ms S IN I/aVL/V4/V5/V6] NONSPECIFIC ST & T-WAVE ABNORMALITY ABNORMAL RHYTHM ECG Compared to ECG 07/15/2024 20:43:48 Incomplete right bundle-branch block now present T-wave abnormality now present Sinus rhythm no longer present Myocardial infarct finding no longer present Electronically Signed On 08-18-2024 19:04:43 CDT by VLADIMIR BALDERAS [id number] [id number]
--- NOTE | 2024-08-17 13:50 | CTR_ITS ---
PROCEDURE INFORMATION: Exam: CT Head Without Contrast Exam date and time: 08/17/2024 2:56 PM Age: 64 years old Clinical indication: Pain; Headache; Migraine; Aura effect not specified; Does not respond to medication; Severity not specified; Additional info: CHEUNG TECHNIQUE: Imaging protocol: Computed tomography of the head without contrast. Radiation optimization: All CT scans at this facility use at least one of these dose optimization techniques: automated exposure control; mA and/or kV adjustment per patient size (includes targeted exams where dose is matched to clinical indication); or iterative reconstruction. COMPARISON: No relevant prior studies available. RADIATION DOSE METRICS: Total DLP (mGy-cm): 1048.78 FINDINGS: Brain: Normal. No hemorrhage. Unremarkable white matter. No mass effect. Cerebral ventricles: No ventriculomegaly. Pituitary gland and sella: There is a normal empty pituitary sella. Paranasal sinuses: Mucous retention cyst in the left frontal sinus. Mild mucosal disease in the left maxillary sinus and left ethmoid air cells. Mastoid air cells: Visualized mastoid air cells are well aerated. Bones: Unremarkable. No acute fracture. Soft tissues: Unremarkable. CT/CT head wo con* [id number] IMPRESSION: No large territorial infarct or intracranial bleed.
--- NOTE | 2024-08-17 13:50 | XRR_ITS ---
PROCEDURE INFORMATION: Exam: XR Chest Exam date and time: 08/17/2024 1:54 PM Age: 64 years old Clinical indication: Shortness of breath; Additional info: SOB TECHNIQUE: Imaging protocol: Radiologic exam of the chest. Views: 1 view. COMPARISON: CT angio chest PE protcl [id number] 07/15/2024 6:12 PM FINDINGS: Lungs: Unremarkable. No consolidation. Pleural spaces: Unremarkable. No pleural effusion. No pneumothorax. Heart/Mediastinum: Unremarkable. No cardiomegaly. Bones/joints: Unremarkable. XR/XR chest 1V portable [id number] IMPRESSION: No acute cardiopulmonary process.
--- NOTE | 2024-08-17 13:50 | CTR_ITS ---
PROCEDURE INFORMATION: Exam: CTA Chest With Contrast Exam date and time: 08/17/2024 3:01 PM Age: 64 years old Clinical indication: Shortness of breath; Additional info: SOB TECHNIQUE: Imaging protocol: Computed tomographic angiography of the chest with contrast. Exam focused on the arteries. 3D rendering (Not supervised by radiologist): MIP and/or 3D reconstructed images were created by the technologist. Radiation optimization: All CT scans at this facility use at least one of these dose optimization techniques: automated exposure control; mA and/or kV adjustment per patient size (includes targeted exams where dose is matched to clinical indication); or iterative reconstruction. Contrast material: OMNIPAQUE 350; Contrast volume: 56 ml; Contrast route: INTRAVENOUS (IV); COMPARISON: CT angio chest PE protcl [id number] 07/15/2024 6:12 PM RADIATION DOSE METRICS: Total DLP (mGy-cm): 459.71 FINDINGS: Pulmonary arteries: Normal. No pulmonary emboli. Aorta: Unremarkable. No aortic aneurysm. No aortic dissection. Lungs: Patchy ground-glass opacities in bilateral upper lobes, right middle lobe and bilateral lower lobes. Pleural spaces: Unremarkable. No pneumothorax. No pleural effusion. Heart: Unremarkable. No cardiomegaly. No pericardial effusion. Lymph nodes: Prominent mediastinal and bilateral hilar lymph nodes measuring up to 1.3 x 2.5 cm in the pre vascular space. Diaphragm: A small hiatal hernia is present. Liver: There is a diffuse decrease in hepatic parenchymal density, consistent with fatty infiltration. 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 The thoracic spine demonstrates mild degenerative changes at multiple levels. Soft tissues: Unremarkable. CT/CT angio chest PE protcl [id number] IMPRESSION: 1. Multifocal ground-glass opacities suggestive of pneumonia versus pneumonitis with reactive lymphadenopathy. 2. No pulmonary embolism.
--- NOTE | 2024-08-17 13:53 | ED_ITS ---
HPI - Headache 2 General: Chief Complaint: Headache Stated Complaint: MIGRAINE Time Seen by Provider: 08/17/24 13:47 Source: patient and EMS Mode of arrival: EMS Limitations: no limitations History of Present Illness: 64-year-old female who states that she h ad a 12-day cruise to [place] she states that since being back she been having some shortness of breath she been having headaches along with fevers. She had a slight cough as well. States she had a headache last night when she went to bed she took an Excedrin and relieve the headache she woke up this morning 9 and then returned states it is lessened again she rates her headache at 2 out of 10 she denies any neck stiffness to me. Patient does not wear oxygen at baseline is on 2 L oxygen here. Associated symptoms: Reports fever(s) and nausea; Deny chest pain or rash Related Data Home Medications ?Medication ?Instructions ?Recorded ?Confirmed loratadine 10 mg tablet (Claritin) 10 mg PO DAILY PRN allergies 08/17/24 08/17/24 Previous Rx's ?Medication ?Instructions ?Recorded lovastatin 20 mg tablet 20 mg PO DAILY #90 tabs 11/24 12/17 escitalopram oxalate 20 mg tablet 20 mg PO DAILY #90 t abs 04/10/24 zolpidem 10 mg tablet (Ambien) 10 mg PO .nightly #30 t abs 04/10/24 losartan 100 mg tablet 100 mg PO DAILY #30 tabs Allergies Allergy/AdvReac Type Severity Reaction Status Date / Time No Known Allergies Allergy Verified 07/28/24 13:46 Review of Systems 2 Const: Reports: fever(s); Denies: chills, body aches or change in appetite Eyes: Denies: blurry vision or eye discomfort ENMT: Denies: throat pain or dental pain Card: Denies: chest pain Resp: Reports: dyspnea GI: Reports: nausea; Denies: abdominal pain or diarrhea Musc: Denies: neck pain or back pain Skin/Breast: Denies: rash Neuro: Reports: headache(s) PFSH ED 2 PFSH: Medical History Insomnia Menopause Depression with anxiety Hyperlipidemia Hypertension Surgical History History of total vaginal hysterectomy (~1989) Performed due to abnormal Paps History of dilation and curettage (~1987) Treatment of miscarriage Family History Father Hypertension Hypercholesteremia Mother Hypertension Hypercholesteremia Breast cancer Grandmother Diabetes maternal Social History Smoking and tobacco/nicotine status: never used tobacco/nicotine Alcohol intake: current Alcohol intake frequency: holidays/special occasions only Substance/Drug Use: never Physical Exam 2 Const: COMMON NORMALS: patient oriented x3 HENMT: COMMON NORMALS: normocephalic and atraumatic HEAD & SCALP: n ormocephalic and atraumatic Eye: COMMON NORMALS: Equal, round and reactive pupils present and EOMs intact bilaterally PUPIL: Yes Equal, round and reactive pupils present Neck/C-Spine: COMMON NORMALS: full ROM and supple GENERAL: No Meningeal signs present Chest: COMMONS NORMALS: normal inspection of the chest and normal palpation of entire chest wall Resp: COMMON NORMALS: normal respiratory effort, No retractions, No use of accessory muscles and clear to auscultation bilaterally AUSCULTATION: clear to auscultation bilaterally Cardio: COMMON NORMALS: regular rate, regular rhythm and No murmurs present (Cardio) RATE: regular rate RHYTHM: regular rhythm GI: COMMON NORMALS: Normal to inspection, nondistended, normoactive bowel sounds present, Soft to palpation, non-tender and no masses PALPATION: Yes Soft to palpation Extremity: COMMON NORMALS: normal to inspection and full ROM Neuro: COMMON NORMALS: patient oriented x3, moves all extremities and no focal motor deficits Psych: COMMON NORMALS: mental status grossly normal, Normal thought process present and cooperative THOUGHT PROCESS: Normal thought process present Skin: COMMON NORMALS: no rashes or lesions noted and no wounds GENERAL SKIN EXAM: no rashes or lesions noted Course 2 Vital Signs: Vital signs: Vital Signs Temperature 99.7 F H 08/17/24 13:37 Pulse Rate 100 08/17/24 15:45 Respiratory Rate 19 H 08/17/24 13:37 Blood Pressure 166/71 08/17/24 15:45 Pulse Oximetry 88 L 08/17/24 15:45 Oxygen Delivery Me thod Room Air 08/17/24 15:45 Oxygen Flow Rate 2 08/17/24 14:37 MDM - Headache Medical Decision Making Patient presents here with fever body aches dyspnea she was positive for influenza. CT shows a pneumonitis she is requiring oxygen here is hypoxic off the oxygen will admit at this time. Medical Records I reviewed the patient's medical records. Lab Data I reviewed the patient's lab results. 08/17/24 13:50 08/17/24 13:50 Radiology Impressions Chest CTA 08/17/24 13:50 IMPRESSION: 1. Multifocal ground-glass opacities suggestive of pneumonia versus pneumonitis with reactive lymphadenopathy. 2. No pulmonary embolism. Chest X-Ray 08/17/24 13:50 IMPRESSION: No acute cardiopulmonary process. Head CT 08/17/24 13:50 IMPRESSION: No large territorial infarct or intracranial bleed. Laboratory Results WBC 19.44 10^3/uL (3.29-11.43) H 08/17/24 13:50 RBC 3.38 10^6/uL (3.85-5.65) L 08/17/24 13:50 Hgb 11.30 g/dL (11.27-16.99) 08/17/24 13:50 Hct 34.6 % (36-47) L 08/17/24 13:50 MCV 102.4 fl (85-98) H 08/17/24 13:50 MCH 33.4 pg (27-33) H 08/17/24 13:50 MCHC 32.7 g/dL (30-55) 08/17/24 13:50 RDW 14.6 % (12.1-15.1) 08/17/24 13:50 Plt Count 264 10^3/cmm (157-399) 08/17/24 13:50 MPV 10.5 fL (7.4-10.4) H 08/17/24 13:50 Neut % (Auto) 88.9 % 08/17/24 13:50 Lymph % (Auto) 3.8 % 08/17/24 13:50 [place] % (Auto) 1.7 % 08/17/24 13:50 Eos % (Auto) 4.7 % 08/17/24 13:50 Baso % (Auto) 0.4 % 08/17/24 13:50 Neut # (Auto) 17.29 10^3/uL (1.8-7.7) H 08/17/24 13:50 Lymph # (Auto) 0.7 10^3/uL (0.8-4.8) L 08/17/24 13:50 [place] # (Auto) 0.3 10^3/uL (0.2-0.9) 08/17/24 13:50 Eos # (Auto) 0.9 10^3/uL (0.0-0.8) H 08/17/24 13:50 Baso # (Auto) 0.1 10^3/uL (0.0-0.1) 08/17/24 13:50 Nucleated RBC % (auto) 0 % 08/17/24 13:50 Nucleated RBCs # 0.0 /100WBC 08/17/24 13:50 Sodium 139 mmol/L (136-145) 08/17/24 13:50 Potassium 3.5 mmol/L (3.5-5.1) 08/17/24 13:50 Chloride 103 mmol/L (98-107) 08/17/24 13:50 Carbon Dioxide 23 mmol/L (22-29) 08/17/24 13:50 Anion Gap 16.5 (5-19) 08/17/24 13:50 BUN 11 mg/dL (8-23) 08/17/24 13:50 Creatinine 0.9 mg/dL (0.5-0.9) 08/17/24 13:50 GFR Calculation 63.0 mL/min (90-130) L 08/17/24 13:50 Glucose 110 mg/dL (65-115) 08/17/24 13:50 Calculated Osmolality 288 mOsm/kg (285-295) 08/17/24 13:50 Lactic Acid 1.7 mmol/L (0.5-2.2) 08/17/24 13:50 Calcium 9.4 mg/dL (8.5-10.5) 08/17/24 13:50 Total Bilirubin 0.4 mg/dL (0.15-1.2) 08/17/24 13:50 AST 23 U/L (0-32) 08/17/24 13:50 ALT 21 U/L (0-33) 08/17/24 13:50 Alkaline Phosphatase 71 U/L (35-105) 08/17/24 13:50 C-Reactive Protein 11.9 mg/L (0.0-4.9) H 08/17/24 13:50 NT-Pro-B Natriuret Pep 281 pg/mL (0-125) H 08/17/24 13:50 Total Protein 7.9 g/dL (6.6-8.7) 08/17/24 13:50 Albumin 3.9 g/dL (3.5-5.2) 08/17/24 13:50 Globulin 4.0 g/dL (1.3-4.6) 08/17/24 13:50 Procalcitonin 0.44 ng/mL (0-0.5) 08/17/24 13:50 Urine Color Yellow (Yellow) 08/17/24 14:48 Urine Appearance Clear (CLEAR) 08/17/24 14:48 Urine pH 6.5 (5-7) 08/17/24 14:48 Ur Specific [place] 1.013 (1.005-1.030) 08/17/24 14:48 Urine Protein 2+ (Negative) A 08/17/24 14:48 Urine Glucose (UA) Negative (Normal) 08/17/24 14:48 Urine Ketones Negative (Negative) 08/17/24 14:48 Urine Blood 3+ (Negative) A 08/17/24 14:48 Urine Nitrate Negative (Negative) 08/17/24 14:48 Urine Bilirubin Negative (Negative) 08/17/24 14:48 Urine Urobilinogen 1.0 mg/dL (Negative) 08/17/24 14:48 Ur Leukocyte Esterase Negative (Negative) 08/17/24 14:48 Urine RBC 51-100 /hpf (0-2) H 08/17/24 14:48 Urine WBC 0-5 /hpf (0-5) 08/17/24 14:48 Ur Squamous Epith Cells 0-5 /hpf (0-5) 08/17/24 14:48 Amorphous Sediment Not Reportable 08/17/24 14:48 Urine Bacteria None seen /hpf (NONE) 08/17/24 14:48 Hyaline Casts 0.81 /lpf 08/17/24 14:48 Influenza A (PCR) Positive (Negative) 08/17/24 14:08 Influenza Type B (PCR) Negative (Negative) 08/17/24 14:08 RSV (PCR) Negative (Negative) 08/17/24 14:08 All radiology interpretation(s) finalized by discharge EKG Data EKG 1: I personally reviewed and interpreted this EKG as follows: EKG interpretation date: 08/17/24 EKG interpretation time: 14:14 Interpretation: sinus tach hr [address] elevation qrs 92 qtc 428 Discharge Plan Discharge Patient Disposition: Admitted As Inpatient Clinical Impression: Influenza A, Respiratory failure with hypoxia Condition: Stable Coding Level of Care Code ED Drag Out Man for Chuy Henao
[2024-08-17 14:00] LABS: Basophils # 0.1 10^3/uL (0.0-0.1); Basophils % 0.4 %; Eosinophils # 0.9 10^3/uL (0.0-0.8); Eosinophils % 4.7 %; Hematocrit 34.6 % (36-47); Lymphocytes # 0.7 10^3/uL (0.8-4.8); Lymphocytes % 3.8 %; Mean Corpuscular HGB Conc 32.7 g/dL (30-55); Mean Corpuscular Hemoglobin 33.4 pg (27-33); Mean Corpuscular Volume 102.4 fl (85-98); Mean Platelet Volume 10.5 fL (7.4-10.4); Monocytes # 0.3 10^3/uL (0.2-0.9); Monocytes % 1.7 %; Neutrophils # 17.29 10^3/uL (1.8-7.7); Neutrophils % 88.9 %; Nucleated Red Blood Cells % 0 %; Platelet Count 264 10^3/cmm (157-399); Red Blood Count 3.38 10^6/uL (3.85-5.65); Red Cell Distribution Width 14.6 % (12.1-15.1); White Blood Count 19.44 10^3/uL (3.29-11.43)
[2024-08-17] MEDS: sodium chloride 0.9% 1,000 ML 999 ML IV (14:02)
[2024-08-17] MEDS: ondansetron 2 mg/ML SDV 2 mL 4 MG IVP (14:03)
[2024-08-17] MEDS: ketorolac 30 mg/mL INJ IVP (14:05)
[2024-08-17] MEDS: acetaminophen 325 mg Tablet 650 MG PO ×2 (14:06→20:27)
[2024-08-17 14:13] LABS: Lactic Sepsis W/Reflex 1.7 mmol/L (0.5-2.2)
[2024-08-17 14:54] LABS: Alanine Aminotransferase 21 U/L (0-33); Albumin Level 3.9 g/dL (3.5-5.2); Alkaline Phosphatase 71 U/L (35-105); Anion Gap 16.5 (5-19); Aspartate Amino Transferase 23 U/L (0-32); Blood Urea Nitrogen 11 mg/dL (8-23); C Reactive Protein 11.9 mg/L (0.0-4.9); Calcium 9.4 mg/dL (8.5-10.5); Carbon Dioxide 23 mmol/L (22-29); Chloride 103 mmol/L (98-107); Creatinine Clr Calc Pharmacy 79.3902; Glucose 110 mg/dL (65-115); Osmolality Calculated 288 mOsm/kg (285-295); Potassium 3.5 mmol/L (3.5-5.1); Sodium 139 mmol/L (136-145); Total Bilirubin 0.4 mg/dL (0.15-1.2); Total Protein 7.9 g/dL (6.6-8.7)
[2024-08-17 15:00] LABS: Procalcitonin 0.44 ng/mL (0-0.5)
[2024-08-17 15:09] LABS: Influenza A POSITIVE (Negative); Influenza B NEGATIVE (Negative); Respiratory Syncytial Virus Ce NEGATIVE (Negative)
[2024-08-17] MEDS: iohexol 350 mg/mL 500 mL Btl (per mL) IV (15:14)
[2024-08-17 15:23] LABS: Bilirubin Urine Negative (Negative); Blood Urine 3+ (Negative); Glucose Urine UA Negative (Normal); Ketones Urine Negative (Negative); Leukocyte Esterase Urine Negative (Negative); Nitrate Urine Negative (Negative); Protein Urine 2+ (Negative); Specific Gravity, Urine 1.013 (1.005-1.030); Urine Appearance Clear (CLEAR); Urine Color Yellow (Yellow); pH Urine 6.5 (5-7)
[2024-08-17 15:28] LABS: Add Urine Microscopic? YES; Bacteria Urine None Seen /hpf; Hyaline Casts Urine 0.81 /lpf; RBC Urine 51-100 /hpf (0-2); Squamous Epithelial Cell Urine 0-5 /hpf (0-5); WBC Urine 0-5 /hpf (0-5)
--- NOTE | 2024-08-17 15:30 | PC.NURSE ---
PT GIVEN 1L NS EN ROUTE. PER VERBAL ORDER FROM DR. GARCIA PT ONLY TO RECEIVE 2L TOTAL. SECOND LITER IN CHART NON ADMINISTERED TO REFLECT 1L GIVEN IN ED AND 1L GIVEN BY EMS.
[2024-08-17 15:33] LABS: Add Urine Culture? Yes
[2024-08-17 15:43] LABS: NT Pro B Type Natriuretic Pept 281 pg/mL (0-125)
[2024-08-17 16:31] LABS: SARS-CoV-2 PCR Positive (Negative)
--- NOTE | 2024-08-17 16:36 | USCV_ITS ---
Amanda Mohr Age: 64 Gender: F : 1960 Exam Date: 08/17/2024 17:53 Ordering Phys: Óscar Parsons MD Technologist: Damián Petersen Exam Location: [facility] [place] Indication: eval valves for endocarditis BP: 166 / 71 HR: 90 Rhythm: Sinus Technical Quality: Adequate MEASUREMENTS (Male / Female) Normal Values 2D ECHO LV Diastolic Diameter PLAX 4.8 cm 4.2 - 5.9 / 3.9 - 5.3 cm IVS Diastolic Thickness 1.3 cm 0.6 - 1.0 / 0.6 - 0.9 cm IVS Systolic Thickness 1.3 cm LVPW Diastolic Thickness 1.5 cm 0.6 - 1.0 / 0.6 - 0.9 cm LVPW Systolic Thickness 2.0 cm LVOT Diameter 2.0 cm LV Ejection Fraction 2D Teich 76.3 % LV Ejection Fraction MOD 4C 67.1 % LV Ejection Fraction MOD 2C 65.6 % LV Ejection Fraction 2C AL 62.2 % LA Diameter 3.2 cm RA Systolic Volume 4C AL 22.9 ml RA Systolic Volume 4C MOD 22.5 ml LA Sys Volume AL 42.2 cm cubed LA Sys Volume Index AL 18.9 cm cubed/m squared Aorta at Sinotubular Diameter 2.1 cm IVC Diameter 1.9 cm M-MODE LA Ao Ratio MM 1.5 AV Cusp Separation MM 1.7 cm DOPPLER AV Peak Velocity 165.7 cm/s LVOT Peak Velocity 141.0 cm/s AV Area Cont Eq vti 2.9 cm squared AV Area Cont Eq pk 2.7 cm squared MV Peak Velocity 134.0 cm/s MV Area PHT 13.4 cm squared Mitral E to A Ratio 0.8 TR Peak Velocity 291.0 cm/s TR Peak Gradient 33.9 mmHg TR Mean Velocity 244.0 cm/s TR Mean Gradient 24.7 mmHg TR Velocity Time Integral 68.3 cm PV Peak Velocity 133.0 cm/s RV Ejection Time 0.3 s FINDINGS Left Ventricle Normal left ventricular size, systolic function and wall thickness, with no regional wall motion abnormalities. Left ventricular ejection fraction is estimated at 60 %. Grade I/IV diastolic dysfunction (abnormal relaxation filling pattern), normal to mildly elevated filling pressures. Right Ventricle The right ventricle is normal in size and function. Right Atrium The right atrium is normal in size. Left Atrium The left atrium is normal in size. Mitral Valve Mildly thickened mitral valve. Mild mitral annular calcification. No mitral valve stenosis. Trace mitral valve regurgitation. Aortic Valve Mild aortic valve calcification. No aortic valve stenosis. Trace aortic valve regurgitation. Tricuspid Valve Structurally normal tricuspid valve without significant stenosis or regurgitation. Pulmonary artery systolic pressure is normal. Pulmonic Valve Structurally normal pulmonic valve without significant stenosis. There is no pulmonic regurgitation. Pericardium Normal pericardium without effusion. Aorta Normal ascending aorta dimension. IVC The inferior vena cava appears normal. CONCLUSIONS Normal left ventricular size, systolic function and wall thickness, with no regional wall motion abnormalities. Left ventricular ejection fraction is estimated at 60 %. Grade I/IV diastolic dysfunction (abnormal relaxation filling pattern), normal to mildly elevated filling pressures. There is no pericardial effusion. No significant valve abnormalities. Right atrial pressure is around 5 mm of mercury. Raghav Christensen MD (Electronically Signed) Final Date: 18 Aug 2024 13:18 S
--- NOTE | 2024-08-17 16:36 | USR_ITS ---
PROCEDURE INFORMATION: Exam: US Retroperitoneal, Complete, Kidneys and Bladder Exam date and time: 08/17/2024 5:09 PM Age: 64 years old Clinical indication: Other: Hematuria TECHNIQUE: Imaging protocol: Real-time ultrasound of the retroperitoneum with image documentation. Complete exam focused on the bilateral kidneys and urinary bladder. COMPARISON: CT angio chest PE protcl [id number] 08/17/2024 3:01 PM FINDINGS: Right kidney: Normal. No stones. No hydronephrosis. Right kidney measures 9.5 x 5 x 4.4 cm with cortical thickness of 1.1 cm. Left kidney: Normal. No stones. The left kidney measures 10.1 x 5.3 x 4.4 cm with cortical thickness of 1.6 cm. Mild dilatation of the left renal pelvis and left ureter. Urinary bladder: Unremarkable. Liver: Diffuse increased echogenicity of the liver consistent with hepatic steatosis. US/US renal BI* [id number] IMPRESSION: Mild left hydronephrosis. No renal lesion.
--- NOTE | 2024-08-17 16:39 | PM.HP ---
Providers/Chief Complaint Primary Care Provider: Javier Mitchell DO Chief Complaint: MIGRAINE History of Present Illness Amanda Mohr is a 64 year old female with a past medical history of chronic leukocytosis of undetermined etiology, hypertension, hyperlipidemia who presents [facility] due to shortness of breath, cough, fatigue, malaise, subjective fevers. Currently patient is alert oriented x 3, following all commands, she recently returned from a [place] [employer] cruise, she tells me that a couple of people on the cruise that were in her group tested positive for COVID, she has been experiencing shortness of breath, cough, headaches, fevers, poor appetite, no loss of taste, no history of COPD no history of drug use, is on 2 L in the emergency room, no cardiovascular history, she tells me that she is undergoing a workup for her leukocytosis, she does report a tick bite on her left hand she thinks before her trip started Review of Systems Const: Reports: fever(s), chills, fatigue and malaise Card: Denies: chest pain Resp: Reports: dyspnea GI: Denies: abdominal pain Medications/Allergies Home Medications ?Medication ?Instructions ?Recorded ?Confirmed ?Last Taken ?Type lovastatin 20 mg tablet 20 mg PO DAILY #90 tabs 12/13/23 08/17/24 08/16/24 Rx escitalopram oxalate 20 mg tablet 20 mg PO DAILY #90 tabs 04/10/24 08/17/24 08/16/24 Rx zolpidem 10 mg tablet (Ambien) 10 mg PO .nightly #30 tabs 04/10/24 08/17/24 08/16/24 Rx losartan 100 mg tablet 100 mg PO DAILY #30 tabs 06/21/24 08/17/24 08/16/24 Rx loratadine 10 mg tablet (Claritin) 10 mg PO DAILY PRN allergies 08/17/24 08/17/24 Unknown History Allergies Allergy/AdvReac Type Severity Reaction Status Date / Time No Known Allergies Allergy Verified 07/28/24 13:46 PFSH Acute PFSH: Medical History Insomnia Menopause Depression with anxiety Hyperlipidemia Hypertension Surgical History History of total vaginal hysterectomy (~1989) Performed due to abnormal Paps History of dilation and curettage (~1987) Treatment of miscarriage Family History Father Hypertension Hypercholesteremia Mother Hypertension Hypercholesteremia Breast cancer Grandmother Diabetes maternal Social History Smoking and tobacco/nicotine status: never used tobacco/nicotine Alcohol intake: current Alcohol intake frequency: holidays/special occasions only Substance/Drug Use: never Vitals/I&O/Wt Last Vital Signs Temp 99.7 F H 08/17/24 13:37 Pulse 100 08/17/24 15:45 Resp 19 H 08/17/24 13:37 BP 166/71 08/17/24 15:45 Pulse Ox 88 L 08/17/24 15:45 O2 Del Method Room Air 08/17/24 15:45 O2 Flow Rate 2 08/17/24 14:37 08/17/24 08/17/24 08/17/24 06:59 14:59 22:59 Intake Total 1000 / 1000 1000 / 2000 Balance 1000 / 1000 1000 / 1999 Weight last 48 hrs Weight 99.79 kg Physical Exam Const: COMMON NORMALS: no acute distress and patient oriented x3 HENMT: COMMON NORMALS: normocephalic HEAD & SCALP: normocephalic Eye: COMMON NORMALS: Equal, round and reactive pupils present Neck/C-Spine: COMMON NORMALS: no JVD Lymph: OTHER: cervical lymphadenoapathy Resp: COMMON NORMALS: normal respiratory effort, No retractions, No use of accessory muscles and clear to auscultation bilaterally AUSCULTATION: clear to auscultation bilaterally Cardio: COMMON NORMALS: no JVD, regular rate, regular rhythm, S1 normal heart sound present and S2 normal heart sound present RATE: regular rate RHYTHM: regular rhythm HEART SOUNDS: S1 normal heart sound present and S2 normal heart sound present GI: COMMON NORMALS: Normal to inspection, nondistended, normoactive bowel sounds present, Soft to palpation and non-tender Extremity: COMMON NORMALS: no calf tenderness and no pedal edema Neuro: COMMON NORMALS: patient oriented x3, CN's II-XII intact bilaterally and moves all extremities Psych: COMMON NORMALS: mental status grossly normal Data 08/17/24 13:50 08/17/24 13:50 Micro: Microbiology 08/17/24 14:08 Blood Culture - Preliminary Blood SPECIMEN COLLECTED 08/17/24 14:05 Blood Culture - Preliminary Blood SPECIMEN COLLECTED A&P Assessment and plan (1) Acute hypoxic respiratory failure: (2) Pneumonia due to COVID-19 virus: (3) Influenza A: (4) Secondary bacterial pneumonia: Plan Acute hypoxic respiratory failure - Multifactorial - COVID-19 pneumonia - Influenza A - Concerns for secondary bacterial pneumonia - CT angiogram of the chest CT/CT angio chest PE protcl [id number] IMPRESSION: 1. Multifocal ground-glass opacities suggestive of pneumonia versus pneumonitis with reactive lymphadenopathy. 2. No pulmonary embolism. Plan - Isolation precautions - Monitor respiratory status closely, on 2 L - DuoNeb - Budesonide - Started on remdesivir loading dose, followed by 100 mg IV daily starting tomorrow - Start Tamiflu - Rocephin, azithromycin for concerns for secondary bacterial pneumonia - Sputum cultures - Blood cultures - Urine bacterial antigens - Full code - Lovenox for DVT prophylaxis Patient has prominent mediastinal bilateral hilar lymph nodes measuring 1.3 x 2.5 cm, these need to be monitored Acute on chronic leukocytosis-determine etiology, being worked up by hematology oncology as outpatient Hematuria, renal ultrasound Full code Lovenox for DVT prophylaxis PDMP PDMP Reviewed: Not Reviewed Attestations Medical Necessity Statement*: patient requires hospitalization, inpatient, greater than 2 midnights, for acute hypoxic respiratory failure secondary COVID-19, influenza A, secondary bacterial pneumonia Diagnoses Acute hypoxic respiratory failure J96.01 Pneumonia due to COVID-19 virus U07.1; J12.82 Influenza A J10.1 Secondary bacterial pneumonia J15.9
--- NOTE | 2024-08-17 16:43 | ECG_ITS ---
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1960 Requested By: Óscar Parsons Order Number: [id number] Reading MD: VLADIMIR BALDERAS Measurements Intervals [place] Rate: 98 P: 67 IN: 148 QRS: 63 QRSD: 90 T: 79 QT: 389 QTc: 497 Interpretive Statements SINUS RHYTHM POSSIBLE RIGHT VENTRICULAR CONDUCTION DELAY [RSR (QR) IN V1/V2] NONSPECIFIC ST & T-WAVE ABNORMALITY Compared to ECG 08/17/2024 14:14:53 Sinus tachycardia no longer present Incomplete right bundle-branch block no longer present T-wave abnormality still present Electronically Signed On 08-18-2024 19:04:08 CDT by VLADIMIR BALDERAS [email or web address]
[2024-08-17 16:57] LABS: Erythrocyte Sedimentation Rate 50 mm/hr (0-15)
[2024-08-17 17:13] LABS: NT Pro B Type Natriuretic Pept 282 pg/mL (0-125)
[2024-08-17 17:20] LABS: Troponin(5th) Baseline 19 ng/L (0-10)
[2024-08-17 17:21] LABS: Lactic Sepsis W/Reflex 1.2 mmol/L (0.5-2.2)
--- NOTE | 2024-08-17 20:28 | PC.NURSE ---
Report called to MORTEZA Kenney
[2024-08-17 21:29] LABS: Estmated Average Glucose 120; Hemoglobin A1C 5.8 % (4.0-6.0)
[2024-08-17 21:38] LABS: Chol HDL Ratio 3.19 mg/dL (0.0-4.40); Cholesterol 134 mg/dL (0-200); HDL Cholesterol 42 mg/dL (60-100); LDL Cholesterol Calculated 73 mg/dL (50-129); LDL HDL Ratio 1.74 RATIO (0.00-3.22); Thyroid Stimulating Hormone 2.62 uIU/mL (0.27-4.20); Triglycerides 96 mg/dL (0-150)
[2024-08-17 21:45] LABS: Troponin T (5th) Once 19 ng/L (0-10)
--- NOTE | 2024-08-17 22:35 | ECG_ITS ---
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1960 Requested By: Óscar Parsons Order Number: [id number] Reading MD: VLADIMIR BALDERAS Measurements Intervals [place] Rate: 97 P: 60 FL: 188 QRS: 50 QRSD: 93 T: 76 QT: 377 QTc: 481 Interpretive Statements SINUS RHYTHM POSSIBLE LEFT ATRIAL ENLARGEMENT [-0.1mV P-WAVE IN V1/V2] INCOMPLETE RIGHT BUNDLE BRANCH BLOCK [90+ ms QRS DURATION, TERMINAL R IN V1/V2, 40+ ms S IN I/aVL/V4/V5/V6] SEPTAL MYOCARDIAL INFARCTION , OF INDETERMINATE AGE [40+ ms Q WAVE IN V1/V2] Compared to ECG 08/17/2024 16:43:25 Incomplete right bundle-branch block now present Myocardial infarct finding now present T-wave abnormality no longer present Electronically Signed On 08-18-2024 19:07:35 CDT by VLADIMIR BALDERAS [email or web address]
[2024-08-17] MEDS: oseltamivir phosphate 75 mg Capsule PO (22:40)
[2024-08-17] MEDS: dexamethasone 10 mg/mL INJ 6 MG IVP (22:40)
[2024-08-17] MEDS: sennosides 8.6 mg Tablet 17.2 MG PO (22:40)
[2024-08-17] MEDS: AZITHROMYCIN ADD-Vantage 500 MG in 0.9% NaCl ADD-Vantage 250 ML 250 MG IV (22:40)
[2024-08-17] MEDS: enoxaparin 40 mg/0.4 mL Syringe SUBCUT (22:40)
[2024-08-17] MEDS: docusate sodium 100 mg Capsule PO (22:40)
[2024-08-17] MEDS: pantoprazole 40 mg SDV IVP (22:40)
[2024-08-17] MEDS: remdesivir 200 MG in sodium chloride 0.9% (100 ml) 60 ML 100 MG IV (22:41)
[2024-08-17] MEDS: cefTRIAXone 1,000 mg SDV 1000 MG IVP (22:41)
[2024-08-17] MEDS: REMDESIVIR 100 MG 200 MG (22:42)
[2024-08-18] VITALS (14 sets, daily range): BP systolic 135–174; BP diastolic 67–78; PULSE 69–100; RESP 16–18; TEMP 36.7–37.2; O2SAT 91–94
[2024-08-18] MEDS: morphine 4 mg/mL SDV 1 mL 2 MG IVP (01:24)
--- NOTE | 2024-08-18 03:14 | PC.NURSE ---
patient transferred from the ER department. patient on 3l of o2 per nasal canula. patient has low grade fever of 99.7 oral. patient positive for covid and flu a. patients lungs are clear, patient is alert and oriented to person place time and date. daughter came to floor and was at bedside at time of admission. patient has no complaints of pain or discomfort at this time.
[2024-08-18 03:54] LABS: Basophils # 0.1 10^3/uL (0.0-0.1); Basophils % 0.3 %; Eosinophils # 0.1 10^3/uL (0.0-0.8); Eosinophils % 0.4 %; Hematocrit 32.9 % (36-47); Lymphocytes # 0.9 10^3/uL (0.8-4.8); Lymphocytes % 2.9 %; Mean Corpuscular HGB Conc 31.6 g/dL (30-55); Mean Corpuscular Hemoglobin 33.9 pg (27-33); Mean Corpuscular Volume 107.2 fl (85-98); Mean Platelet Volume 10.7 fL (7.4-10.4); Monocytes # 0.2 10^3/uL (0.2-0.9); Monocytes % 0.6 %; Neutrophils # 30.26 10^3/uL (1.8-7.7); Neutrophils % 94.8 %; Nucleated Red Blood Cells % 0 %; Platelet Count 220 10^3/cmm (157-399); Red Blood Count 3.07 10^6/uL (3.85-5.65); Red Cell Distribution Width 14.9 % (12.1-15.1)
[2024-08-18] MEDS: acetaminophen 325 mg Tablet 650 MG PO ×3 (04:07→23:12)
[2024-08-18 04:12] LABS: White Blood Count 31.92 10^3/uL (3.29-11.43)
[2024-08-18 04:19] LABS: Alanine Aminotransferase 19 U/L (0-33); Albumin Level 3.7 g/dL (3.5-5.2); Alkaline Phosphatase 112 U/L (35-105); Aspartate Amino Transferase 24 U/L (0-32); Blood Urea Nitrogen 10 mg/dL (8-23); Calcium 8.8 mg/dL (8.5-10.5); Carbon Dioxide 22 mmol/L (22-29); Chloride 108 mmol/L (98-107); Creatinine Clr Calc Pharmacy 71.9396; Globulin 3.9 g/dL (1.3-4.6); Glomerular Filtration Rate 55.8 mL/min (90-130); Glucose 141 mg/dL (65-115); Osmolality Calculated 299 mOsm/kg (285-295); Sodium 144 mmol/L (136-145); Total Bilirubin 0.3 mg/dL (0.15-1.2); Total Protein 7.6 g/dL (6.6-8.7)
[2024-08-18] MEDS: budesonide 0.5 mg/2 mL Neb 0.25 MG INHALATION (08:40)
[2024-08-18] MEDS: escitalopram 10 mg Tablet 20 MG PO (10:09)
[2024-08-18] MEDS: docusate sodium 100 mg Capsule PO ×2 (10:09→18:00)
[2024-08-18] MEDS: oseltamivir phosphate 75 mg Capsule PO ×2 (10:09→18:00)
[2024-08-18] MEDS: losartan 50 mg Tablet 100 MG PO (10:09)
--- NOTE | 2024-08-18 14:43 | P.PN_ITS ---
Subjective 2 Subjective: Patient was seen this morning, currently alert x 3, following all commands, denies any fevers, chills, no nausea, no vomiting Vitals/I&O/Wt Last Vital Signs Temp 98.1 F 08/18/24 12:53 Pulse 78 08/18/24 12:53 Resp 18 08/18/24 12:53 BP 145/67 08/18/24 12:53 Pulse Ox 94 08/18/24 11:13 O2 Del Method Nasal Cannula 08/18/24 11:13 O2 Flow Rate 2 08/18/24 08:45 08/17/24 08/18/24 08/18/24 22:59 06:59 14:59 Intake Total 1450 / 2450 950 / 3400 480 / 480 Balance 1450 / 2450 950 / 3400 480 / 480 Weight last 48 hrs Weight 101.151 kg Weight 101.151 kg Weight 99.79 kg Physical Exam 2 Const: COMMON NORMALS: no acute distress and patient oriented x3 Resp: COMMON NORMALS: normal respiratory effort, No retractions, No use of accessory muscles and clear to auscultation bilaterally AUSCULTATION: clear to auscultation bilaterally Cardio: COMMON NORMALS: regular rate, regular rhythm, S1 normal heart sound present and S2 normal heart sound present RATE: regular rate RHYTHM: r egular rhythm HEART SOUNDS: S1 normal heart sound present and S2 normal heart sound present GI: COMMON NORMALS: Normal to inspection, nondistended, normoactive bowel sounds present and non-tender Extremity: COMMON NORMALS: no pedal edema Neuro: COMMON NORMALS: patient oriented x3 Psych: COMMON NORMALS: mental status grossly normal Data 08/18/24 02:47 08/18/24 02:47 Micro: Microbiology 08/17/24 14:08 Blood Culture - Preliminary Blood NEGATIVE TO DATE 08/17/24 14:05 Blood Culture - Preliminary Blood NEGATIVE TO DATE 08/17/24 16:48 Gram Stain - Final Sputum - Expectorated Sputum Sputum Culture - Preliminary 08/17/24 14:48 Urine Culture - Preliminary Urine,Clean Catch 08/17/24 14:48 Bacterial Antigens - Final Urine,Voided 08/17/24 14:48 Legionella Urinary Antigen - Final Urine,Voided A&P Assessment and plan (1) Acute hypoxic respiratory failure: (2) Pneumonia due to COVID-19 virus: (3) Influenza A: (4) Secondary bacterial pneumonia: Plan Acute hypoxic respiratory failure - Multifactorial - COVID-19 pneumonia - Influenza A - Concerns for secondary bacterial pneumonia - CT angiogram of the chest CT/CT angio chest PE protcl [id number] IMPRESSION: 1. Multifocal ground-glass opacities suggestive of pneumonia versus pneumonitis with reactive lymphadenopathy. 2. No pulmonary embolism. Plan - Isolation precautions - Monitor respiratory status closely, on 2 L - DuoNeb - Budesonide - Started on remdesivir loading dose, followed by 100 mg IV daily starting tomorrow - Start Tamiflu - Rocephin, azithromycin for concerns for secondary bacterial pneumonia - Sputum cultures - Blood cultures - Urine bacterial antigens - Full code - Lovenox for DVT prophylaxis Patient has prominent mediastinal bilateral hilar lymph nodes measuring 1.3 x 2.5 cm, these need to be monitored Acute on chronic leukocytosis-determine etiology, being worked up by hematology oncology as outpatient Hematuria, renal ultrasound, US/US renal BI* [id number] IMPRESSION: Mild left hydronephrosis. No renal lesion. Full code Lovenox for DVT prophylaxis PDMP PDMP Reviewed: Not Reviewed Attestations 2 Medical Necessity Statement*: Patient requires hospitalization for acute hypoxic respiratory failure secondary COVID-19, influenza A, secondary bacterial pneumonia Diagnoses Acute hypoxic respiratory failure J96.01 Pneumonia due to COVID-19 virus U07.1; J12.82 Influenza A J10.1 Secondary bacterial pneumonia J15.9
[2024-08-18] MEDS: remdesivir 100 MG in sodium chloride 0.9% (100 ml) 80 ML IV (18:00)
[2024-08-18] MEDS: pantoprazole 40 mg SDV IVP (22:43)
[2024-08-18] MEDS: cefTRIAXone 1,000 mg SDV 1000 MG IVP (22:43)
[2024-08-18] MEDS: dexamethasone 10 mg/mL INJ 6 MG IVP (22:44)
[2024-08-18] MEDS: zolpidem 5 mg Tablet 10 MG PO (22:44)
[2024-08-18] MEDS: ATORVASTATIN 10 MG TABLET 20 MG PO (22:44)
[2024-08-18] MEDS: sennosides 8.6 mg Tablet 17.2 MG PO (22:44)
[2024-08-18] MEDS: enoxaparin 40 mg/0.4 mL Syringe SUBCUT (22:45)
[2024-08-18] MEDS: AZITHROMYCIN ADD-Vantage 500 MG in 0.9% NaCl ADD-Vantage 250 ML 250 MG IV (22:52)
[2024-08-19] VITALS (10 sets, daily range): BP systolic 142–190; BP diastolic 65–81; PULSE 64–89; RESP 16–19; TEMP 36.4–36.8; O2SAT 92–95
[2024-08-19 06:20] LABS: Basophils # 0.1 10^3/uL (0.0-0.1); Basophils % 0.2 %; Eosinophils # 0.1 10^3/uL (0.0-0.8); Eosinophils % 0.2 %; Lymphocytes # 1.3 10^3/uL (0.8-4.8); Lymphocytes % 5.4 %; Mean Corpuscular HGB Conc 30.6 g/dL (30-55); Mean Corpuscular Hemoglobin 34.1 pg (27-33); Mean Corpuscular Volume 111.1 fl (85-98); Mean Platelet Volume 10.8 fL (7.4-10.4); Monocytes # 0.2 10^3/uL (0.2-0.9); Monocytes % 0.8 %; Neutrophils # 22.95 10^3/uL (1.8-7.7); Nucleated Red Blood Cells % 0.1 %; Platelet Count 221 10^3/cmm (157-399); Red Blood Count 2.79 10^6/uL (3.85-5.65); White Blood Count 24.97 10^3/uL (3.29-11.43)
[2024-08-19 06:38] LABS: Alanine Aminotransferase 17 U/L (0-33); Albumin Level 3.2 g/dL (3.5-5.2); Alkaline Phosphatase 58 U/L (35-105); Anion Gap 13.4 (5-19); Aspartate Amino Transferase 17 U/L (0-32); Blood Urea Nitrogen 16 mg/dL (8-23); Calcium 9.1 mg/dL (8.5-10.5); Carbon Dioxide 24 mmol/L (22-29); Chloride 109 mmol/L (98-107); Creatinine Clr Calc Pharmacy 89.9245; Globulin 3.8 g/dL (1.3-4.6); Glomerular Filtration Rate 72.2 mL/min (90-130); Glucose 144 mg/dL (65-115); Osmolality Calculated 298 mOsm/kg (285-295); Potassium 4.4 mmol/L (3.5-5.1); Sodium 142 mmol/L (136-145); Total Bilirubin 0.3 mg/dL (0.15-1.2)
[2024-08-19] MEDS: ATORVASTATIN 10 MG TABLET 20 MG PO (08:57)
[2024-08-19] MEDS: oseltamivir phosphate 75 mg Capsule PO ×2 (08:58→17:18)
[2024-08-19] MEDS: escitalopram 10 mg Tablet 20 MG PO (08:58)
[2024-08-19] MEDS: docusate sodium 100 mg Capsule PO ×2 (08:58→17:18)
[2024-08-19] MEDS: losartan 50 mg Tablet 100 MG PO (08:58)
--- NOTE | 2024-08-19 10:18 | PC.CHAP ---
Pastoral Care Encounter/Spiritual Assessment Type of Contact [] Declined quality assurance advisor visit [] Patient/Family/Request visit [] Outpatient visit [] Follow-up visit [] Physician referral [] Code/Alert [] Routine visit [] Staff referral [] Actively dying [] Patient sleeping [] Family support [] [] Out of room [] Palliative care [] [] Receiving care in room [] Pre-surgical visit [] Trauma [] Long length of stay [] ICU visit [x] Other:Contact precautions. No visit. Relational/Emotional Strength [] Patient feels connected with others/family/visitors/staff [] Distress [] Loneliness/isolation [] Abandonment Spirituality of Patient [] Person of [place]se [] Attends Anabaptism of their [place] [] Believes in Prayer [] Reads Bible or Bahai materials [] There are Spiritual issues to be addressed Cad Manager Interventions [] Prayer [] Active listening [] Non-anxious presence [] Spiritual/emotional support [] Crisis/trauma care [] Spiritual counseling [] Bereavement support [] Provided bereavement packet [] Provided Bible/devotional materials [] Provided toy/stuffed animal, coloring book to patient or family member [] Provided Communion [] Anointing/[place] [] Salvation [] Completed spiritual assessment [] Other: Impact on Illness or Injury [] Angry [] Fearful [] Anxious [] Often cries [] Exhaustion [] Unable to work [] Unable to attend hoahaoism [] Unable to walk/stand [] Unable to read [] Unable to drive [] Unable to eat/drink [] Unable to sleep [] Unable to be with family [] Patient intubated [] Other: Summary Time spent with patient
--- NOTE | 2024-08-19 13:14 | P.PN_ITS ---
Subjective 2 Subjective: Patient was seen this morning, she is alert oriented x 3, following all commands, she does report feeling weak, fatigued, tired, short of breath with exertion, does have a cough, now more productive, she is requiring oxygen Vitals/I&O/Wt Last Vital Signs Temp 97.7 F 08/19/24 11:21 Pulse 79 08/19/24 11:21 Resp 19 H 08/19/24 11:21 BP 153/76 08/19/24 11:21 Pulse Ox 94 08/19/24 11:21 O2 Del Method Nasal Cannula 08/19/24 11:21 O2 Flow Rate 2 08/19/24 09:44 08/18/24 08/19/24 08/19/24 22:59 06:59 14:59 Intake Total 640 / 1120 450 / 1570 120 / 120 Balance 640 / 1120 450 / 1570 120 / 120 Weight last 48 hrs Weight 101.151 kg Weight 101.151 kg Weight 101.151 kg Weight 99.79 kg Physical Exam 2 Const: COMMON NORMALS: no acute distress and patient oriented x3 Resp: COMMON NORMALS: normal respiratory effort, No retractions and No use of accessory muscles AUSCULTATION: crackles and wheezes Cardio: COMMON NORMALS: regular rate, regular rhythm, S1 normal heart sound present and S2 normal heart sound present RATE: regular rate RHYTHM: r egular rhythm HEART SOUNDS: S1 normal heart sound present and S2 normal heart sound present GI: COMMON NORMALS: Normal to inspection, nondistended, normoactive bowel sounds present and non-tender Extremity: COMMON NORMALS: no pedal edema Neuro: COMMON NORMALS: patient oriented x3 Psych: COMMON NORMALS: mental status grossly normal Data 08/19/24 05:40 08/19/24 05:40 Micro: Microbiology 08/17/24 16:48 Gram Stain - Final Sputum - Expectorated Sputum Sputum Culture - Preliminary 08/17/24 14:48 Urine Culture - Final Urine,Clean Catch 08/17/24 14:08 Blood Culture - Preliminary Blood NEGATIVE TO DATE 08/17/24 14:05 Blood Culture - Preliminary Blood NEGATIVE TO DATE 08/17/24 14:48 Bacterial Antigens - Final Urine,Voided A&P Assessment and plan (1) Acute hypoxic respiratory failure: (2) Pneumonia due to COVID-19 virus: (3) Influenza A: (4) Secondary bacterial pneumonia: Plan Acute hypoxic respiratory failure - Multifactorial - COVID-19 pneumonia - Influenza A - Concerns for secondary bacterial pneumonia - CT angiogram of the chest CT/CT angio chest PE protcl [id number] IMPRESSION: 1. Multifocal ground-glass opacities suggestive of pneumonia versus pneumonitis with reactive lymphadenopathy. 2. No pulmonary embolism. Plan - Isolation precautions - Monitor respiratory status closely, on 2 L - DuoNeb - Budesonide - Started on remdesivir loading dose, followed by 100 mg IV daily starting tomorrow - Continue Tamiflu - Rocephin, azithromycin for concerns for secondary bacterial pneumonia - Sputum cultures - Blood cultures - Urine bacterial antigens - Full code - Lovenox for DVT prophylaxis Patient has prominent mediastinal bilateral hilar lymph nodes measuring 1.3 x 2.5 cm, these need to be monitored Acute on chronic leukocytosis-determine etiology, being worked up by hematology oncology as outpatient Hematuria, renal ultrasound, US/ renal BI* [id number] IMPRESSION: Mild left hydronephrosis. No renal lesion. Full code Lovenox for DVT prophylaxis Plan for today, up out of bed, monitor respiratory status closely, continue IV antibiotics, continue remdesivir PDMP PDMP Reviewed: Not Reviewed Attestations 2 Medical Necessity Statement*: Patient requires hospitalization for acute hypoxic respiratory failure secondary to COVID-19, influenza A, secondary bacterial pneumonia Diagnoses Acute hypoxic respiratory failure J96.01 Pneumonia due to COVID-19 virus U07.1; J12.82 Influenza A J10.1 Secondary bacterial pneumonia J15.9
[2024-08-19] MEDS: remdesivir 100 MG in sodium chloride 0.9% (100 ml) 80 ML IV (17:18)
[2024-08-19] MEDS: enoxaparin 40 mg/0.4 mL Syringe SUBCUT (20:28)
[2024-08-19] MEDS: dexamethasone 10 mg/mL INJ 6 MG IVP (20:28)
[2024-08-19] MEDS: pantoprazole 40 mg SDV IVP (20:28)
[2024-08-19] MEDS: sennosides 8.6 mg Tablet 17.2 MG PO (20:29)
[2024-08-19] MEDS: cefTRIAXone 1,000 mg SDV 1000 MG IVP (21:48)
[2024-08-19] MEDS: zolpidem 5 mg Tablet 10 MG PO (21:49)
[2024-08-19] MEDS: azithromycin 250 mg Tablet PO (21:49)
[2024-08-20] VITALS (12 sets, daily range): BP systolic 148–187; BP diastolic 69–84; PULSE 65–74; RESP 16–19; TEMP 36.5–36.7; O2SAT 90–96
[2024-08-20 05:51] LABS: Basophils # 0.1 10^3/uL (0.0-0.1); Basophils % 0.4 %; Eosinophils % 0.1 %; Hematocrit 31.4 % (36-47); Lymphocytes # 1.7 10^3/uL (0.8-4.8); Lymphocytes % 8.3 %; Mean Corpuscular HGB Conc 30.6 g/dL (30-55); Mean Corpuscular Hemoglobin 33.2 pg (27-33); Mean Corpuscular Volume 108.7 fl (85-98); Mean Platelet Volume 10.8 fL (7.4-10.4); Monocytes # 0.4 10^3/uL (0.2-0.9); Monocytes % 1.8 %; Neutrophils # 17.99 10^3/uL (1.8-7.7); Nucleated Red Blood Cells % 0.1 %; Platelet Count 259 10^3/cmm (157-399); Red Blood Count 2.89 10^6/uL (3.85-5.65); White Blood Count 20.93 10^3/uL (3.29-11.43)
[2024-08-20 06:28] LABS: Alanine Aminotransferase 18 U/L (0-33); Albumin Level 3.3 g/dL (3.5-5.2); Alkaline Phosphatase 90 U/L (35-105); Anion Gap 14.2 (5-19); Aspartate Amino Transferase 17 U/L (0-32); Blood Urea Nitrogen 18 mg/dL (8-23); Calcium 9.2 mg/dL (8.5-10.5); Carbon Dioxide 25 mmol/L (22-29); Chloride 106 mmol/L (98-107); Creatinine Clr Calc Pharmacy 102.7709; Globulin 3.8 g/dL (1.3-4.6); Glomerular Filtration Rate 84.2 mL/min (90-130); Glucose 141 mg/dL (65-115); Osmolality Calculated 296 mOsm/kg (285-295); Potassium 4.2 mmol/L (3.5-5.1); Sodium 141 mmol/L (136-145); Total Bilirubin 0.2 mg/dL (0.15-1.2); Total Protein 7.1 g/dL (6.6-8.7)
[2024-08-20] MEDS: amlodipine 10 mg Tablet PO (08:48)
[2024-08-20] MEDS: escitalopram 10 mg Tablet 20 MG PO (08:49)
[2024-08-20] MEDS: losartan 50 mg Tablet 100 MG PO (08:49)
[2024-08-20] MEDS: docusate sodium 100 mg Capsule PO ×2 (08:49→17:50)
[2024-08-20] MEDS: oseltamivir phosphate 75 mg Capsule PO ×2 (08:49→17:50)
[2024-08-20] MEDS: ATORVASTATIN 10 MG TABLET 20 MG PO (08:49)
--- NOTE | 2024-08-20 16:52 | P.PN_ITS ---
Subjective 2 Subjective: Patient denies any fevers, chills, does have a nonproductive cough, shortness of breath is improving, no lightheadedness, dizziness Vitals/I&O/Wt Last Vital Signs Temp 97.7 F 08/20/24 11:57 Pulse 72 08/20/24 13:07 Resp 18 08/20/24 11:57 BP 169/80 08/20/24 11:57 Pulse Ox 94 08/20/24 11:57 O2 Del Method Room Air 08/20/24 11:57 O2 Flow Rate 0 08/20/24 08:00 08/20/24 08/20/24 08/20/24 06:59 14:59 22:59 Intake Total 240 / 240 Balance 240 / 240 Weight last 48 hrs Weight 101.605 kg Weight 101.151 kg Physical Exam 2 Const: COMMON NORMALS: no acute distress and patient oriented x3 Resp: COMMON NORMALS: normal respiratory effort, No retractions and No use of accessory muscles AUSCULTATION: wheezes Cardio: COMMON NORMALS: regular rate, regular rhythm, S1 normal heart sound present and S2 normal heart sound present RATE: regular rate RHYTHM: r egular rhythm HEART SOUNDS: S1 normal heart sound present and S2 normal heart sound present GI: COMMON NORMALS: Normal to inspection, nondistended, normoactive bowel sounds present and non-tender Extremity: COMMON NORMALS: no pedal edema Neuro: COMMON NORMALS: patient oriented x3 Psych: COMMON NORMALS: mental status grossly normal Data 08/20/24 05:17 08/20/24 05:17 Micro: Microbiology 08/17/24 16:48 Gram Stain - Final Sputum - Expectorated Sputum Sputum Culture - Final A&P Assessment and plan (1) Acute hypoxic respiratory failure: (2) Pneumonia due to COVID-19 virus: (3) Influenza A: (4) Secondary bacterial pneumonia: Plan Acute hypoxic respiratory failure - Multifactorial - COVID-19 pneumonia - Influenza A - Concerns for secondary bacterial pneumonia - CT angiogram of the chest CT/CT angio chest PE protcl [id number] IMPRESSION: 1. Multifocal ground-glass opacities suggestive of pneumonia versus pneumonitis with reactive lymphadenopathy. 2. No pulmonary embolism. Plan - Isolation precautions - Monitor respiratory status closely, on 2 L - DuoNeb - Budesonide - Started on remdesivir loading dose, followed by 100 mg IV daily starting tomorrow - Continue Tamiflu - Rocephin, azithromycin for concerns for secondary bacterial pneumonia - Sputum cultures - Blood cultures - Urine bacterial antigens - Full code - Lovenox for DVT prophylaxis Patient has prominent mediastinal bilateral hilar lymph nodes measuring 1.3 x 2.5 cm, these need to be monitored Acute on chronic leukocytosis-determine etiology, being worked up by hematology oncology as outpatient Hematuria, renal ultrasound, US/ renal BI* [id number] IMPRESSION: Mild left hydronephrosis. No renal lesion. Hypertension, Norvasc 10 mg daily, losartan 100 mg daily, chlorthalidone 25 mg daily Full code Lovenox for DVT prophylaxis Plan for today, up out of bed, monitor respiratory status closely, continue IV antibiotics, continue remdesivir, Tamiflu, wean oxygen, plan on discharging in the next 24 hours PDMP PDMP Reviewed: Not Reviewed Attestations 2 Medical Necessity Statement*: Patient requires hospitalization for acute hypoxic respiratory failure send COVID-, Sunday, concerns for cellulitis, pneumonia Diagnoses Acute hypoxic respiratory failure J96.01 Pneumonia due to COVID-19 virus U07.1; J12.82 Influenza A J10.1 Secondary bacterial pneumonia J15.9
[2024-08-20] MEDS: remdesivir 100 MG in sodium chloride 0.9% (100 ml) 80 ML IV (17:50)
[2024-08-20] MEDS: chlorthalidone 25 mg Tablet PO (17:50)
[2024-08-20] MEDS: enoxaparin 40 mg/0.4 mL Syringe SUBCUT (20:53)
[2024-08-20] MEDS: sennosides 8.6 mg Tablet 17.2 MG PO (20:53)
[2024-08-20] MEDS: dexamethasone 10 mg/mL INJ 6 MG IVP (20:53)
[2024-08-20] MEDS: pantoprazole 40 mg SDV IVP (20:53)
[2024-08-20] MEDS: cefTRIAXone 1,000 mg SDV 1000 MG IVP (22:12)
[2024-08-20] MEDS: azithromycin 250 mg Tablet PO (22:12)
[2024-08-20] MEDS: zolpidem 5 mg Tablet 10 MG PO (22:12)
[2024-08-21] VITALS: BP 165/82; PULSE 69; RESP 16; TEMP 37; O2SAT 93
[2024-08-21 04:00] VITALS: BP 175/74; PULSE 85; RESP 16; TEMP 37; O2SAT 93
[2024-08-21 06:01] LABS: Hematocrit 35.6 % (36-47); Mean Corpuscular Hemoglobin 33.5 pg (27-33); Mean Corpuscular Volume 104.7 fl (85-98); Mean Platelet Volume 10.8 fL (7.4-10.4); Platelet Count 342 10^3/cmm (157-399); Red Cell Distribution Width 14.6 % (12.1-15.1); White Blood Count 14.46 10^3/uL (3.29-11.43)
[2024-08-21 06:20] LABS: Anion Gap 16.2 (5-19); Blood Urea Nitrogen 17 mg/dL (8-23); Calcium 9.9 mg/dL (8.5-10.5); Carbon Dioxide 26 mmol/L (22-29); Chloride 103 mmol/L (98-107); Creatinine Clr Calc Pharmacy 103.0037; Glomerular Filtration Rate 84.2 mL/min (90-130); Glucose 144 mg/dL (65-115); Osmolality Calculated 296 mOsm/kg (285-295); Potassium 4.2 mmol/L (3.5-5.1); Sodium 141 mmol/L (136-145)
[2024-08-21 06:38] LABS: Slide Review Slide Review Perform
[2024-08-21 06:39] LABS: Absolute Eosinophils 0.1 10^3/cmm (0.0-0.7); Absolute Segmented Neutrophil 10.1 10/cmm (1.6-7.1); Band Neutrophils Absolute 1.4 10^3/cmm (0.0-1.2); Eosinophils 1 %; Lymphocytes 13 %; Lymphocytes Absolute 1.9 10^3/cmm (1.2-3.4); Segmented Neutrophils 70 %; Total Cells Counted 100 (0-100)
[2024-08-21 06:40] LABS: Absolute Neutrophil 11.6 10^3/cmm (1.4-6.5); Platelet Estimate Normal (Normal)
[2024-08-21 06:42] LABS: Macrocytosis 1+
[2024-08-21 07:58] VITALS: BP 171/86; PULSE 79; RESP 15; TEMP 36.7; O2SAT 95
[2024-08-21 08:38] VITALS: BP 171/86
[2024-08-21] MEDS: oseltamivir phosphate 75 mg Capsule PO (08:38)
[2024-08-21] MEDS: escitalopram 10 mg Tablet 20 MG PO (08:38)
[2024-08-21] MEDS: amlodipine 10 mg Tablet PO (08:38)
[2024-08-21] MEDS: docusate sodium 100 mg Capsule PO (08:38)
[2024-08-21] MEDS: ATORVASTATIN 10 MG TABLET 20 MG PO (08:38)
[2024-08-21] MEDS: losartan 50 mg Tablet 100 MG PO (08:38)
[2024-08-21 08:58] VITALS: PULSE 81; RESP 18; O2SAT 95; O2SAT 99
[2024-08-21] MEDS: chlorthalidone 25 mg Tablet PO (09:45)
[2024-08-21 11:30] VITALS: BP 147/93; PULSE 72; RESP 16; TEMP 36.7; O2SAT 95
--- NOTE | 2024-08-21 11:49 | P.DS_ITS ---
Discharge Providers Date of Admission: 08/17/24 19:03 Date of Discharge: August 21, 2024 Attending Provider at Admission: Óscar Parsons MD Attending Provider at Discharge: Óscar Parsons MD Primary Care Provider: Javier Micthell DO Diagnoses at Discharge Discharge Diagnosis (1) Acute hypoxic respiratory failure: Status: Acute (2) Pneumonia due to COVID-19 virus: Status: Acute (3) Influenza A: Status: Acute (4) Secondary bacterial pneumonia: Status: Acute Reason for Visit Reason for Visit: MIGRAINE Hospital Course Hospital Course Amanda Mohr is a 64 year old female with a past medical history of chronic leukocytosis of undetermined etiology, hypertension, hyperlipidemia who presents [facility] due to shortness of breath, cough, fatigue, malaise, subjective fevers. Currently patient is alert oriented x 3, following all commands, she recently returned from a [place] cruise, she tells me that a couple of people on the cruise that were in her group tested positive for COVID, she has been experiencing shortness of breath, cough, headaches, fevers, poor appetite, no loss of taste, no history of COPD no history of drug use, is on 2 L in the emergency room, no cardiovascular history, she tells me that she is undergoing a workup for her leukocytosis, she does report a tick bite on her left hand she thinks before her trip started Patient was admitted to [facility] for acute hypoxic respiratory failure multifactorial from acute COVID-19 pneumonia, influenza A, concern for secondary bacterial pneumonia, patient received Tamiflu, remdesivir, broad- spectrum antibiotic therapy, clinically monitored as inpatient. Overall patient clinically improved, she completed 4 days of remdesivir, she will be discharged on p.o. antibiotics, Tamiflu, Decadron, with a close follow-up with primary care provider as outpatient For her mediastinal bilateral hilar lymphadenopathy, likely secondary to above COVID/flu/secondary bacterial pneumonia, nonetheless as patient is undergoing a workup for chronic leukocytosis, primary care/oncology should consider repeating CT scan within 6 weeks For hematuria, renal ultrasound shows mild left hydronephrosis, should consider repeating urinalysis in 4 to 6 weeks, if patient has recurrent hematuria, should consider CT urography especially with patient's chronic leukocytosis In terms of DVT prophylaxis after COVID-19 pneumonia. Had a detailed discussion with the patient about the risk of benefits of anticoagulant therapy, shared de cision making, she is mobile during her hospitalization, no history of DVT or PE, after discussing the risk and benefits of all options, she voiced understanding, all question answered, agreed to proceed, we will discharge her on aspirin 81 mg daily. Discussed with patient if she were to have any symptoms of DVT or pulmonary embolism to immediately go to the emergency room Physical Exam Const: COMMON NORMALS: no acute distress and patient oriented x3 Resp: COMMON NORMALS: normal respiratory effort, No retractions, No use of accessory muscles and clear to auscultation bilaterally AUSCULTATION: clear to auscultation bilaterally Cardio: COMMON NORMALS: regular rate, regular rhythm, S1 normal heart sound present and S2 normal heart sound present RATE: regular rate RHYTHM: regular rhythm HEART SOUNDS: S1 normal heart sound present and S2 normal heart sound present GI: COMMON NORMALS: Normal to inspection, nondistended, normoactive bowel sounds present and non-tender Extremity: COMMON NORMALS: no pedal edema Neuro: COMMON NORMALS: patient oriented x3 Psych: COMMON NORMALS: mental status grossly normal Discharge Data Studies Completed and Pending Completed Studies During Hospitalization Category Date Time Status CT angio chest PE protcl [id number] Stat Cat Scan 08/17/24 13:[address] head wo con* [id number] Stat Cat Scan 08/17/24 13:50 Completed XR chest 1V portable [id number] Stat Exams 08/17/24 13:50 Completed CV. echo complete* [id number] Stat Ultrasound 08/17/24 16:36 Completed US renal BI* [id number] Stat Ultrasound 08/17/24 16:36 Completed Pending at discharge Category Date Time Status SABINA Profile Rheumatology Stat Lab 08/20/24 08:51 Received Basic Metabolic Panel AM LABS Lab 08/22/24 04:00 Ordered Basic Metabolic Panel AM LABS Lab 08/23/24 04:00 Ordered Blood Culture Stat Lab 08/17/24 14:08 Results Complete Blood Count w/Auto AM LABS Lab 08/22/24 04:00 Ordered Complete Blood Count w/Auto AM LABS Lab 08/23/24 04:00 Ordered Sputum Culture and Gram Stain Routine Lab 08/20/24 15:13 Results Tick Panel Routine Lab 08/20/24 08:51 Received Radiology Impressions Chest CTA 08/17/24 13:50 IMPRESSION: 1. Multifocal ground-glass opacities suggestive of pneumonia versus pneumonitis with reactive lymphadenopathy. 2. No pulmonary embolism. Chest X-Ray 08/17/24 13:50 IMPRESSION: No acute cardiopulmonary process. Head CT 08/17/24 13:50 IMPRESSION: No large territorial infarct or intracranial bleed. Renal Ultrasound 08/17/24 16:36 IMPRESSION: Mild left hydronephrosis. No renal lesion. Laboratory Results WBC 14.46 10^3/uL (3.29-11.43) H 08/21/24 05:16 RBC 3.40 10^6/uL (3.85-5.65) L 08/21/24 05:16 Hgb 11.40 g/dL (11.27-16.99) 08/21/24 05:16 Hct 35.6 % (36-47) L 08/21/24 05:16 MCV 104.7 fl (85-98) H 08/21/24 05:16 MCH 33.5 pg (27-33) H 08/21/24 05:16 MCHC 32.0 g/dL (30-55) 08/21/24 05:16 RDW 14.6 % (12.1-15.1) 08/21/24 05:16 Plt Count 342 10^3/cmm (157-399) D 08/21/24 05:16 MPV 10.8 fL (7.4-10.4) H 08/21/24 05:16 Neut % (Auto) 86.0 % 08/20/24 05:17 Lymph % (Auto) Not Reportable 08/21/24 05:16 [place] % (Auto) Not Reportable 08/21/24 05:16 Eos % (Auto) 0.1 % 08/20/24 05:17 Baso % (Auto) 0.4 % 08/20/24 05:17 Neut # (Auto) 17.99 10^3/uL (1.8-7.7) H 08/20/24 05:17 Lymph # (Auto) Not Reportable 08/21/24 05:16 [place] # (Auto) Not Reportable 08/21/24 05:16 Eos # (Auto) 0.0 10^3/uL (0.0-0.8) 08/20/24 05:17 Baso # (Auto) 0.1 10^3/uL (0.0-0.1) 08/20/24 05:17 Nucleated RBC % (auto) 0.1 % 08/20/24 05:17 Total Counted 100 (0-100) 08/21/24 05:16 Atypical Lymphs % 0.0 % (0-5) 08/21/24 05:16 Absolute Neutrophils 11.6 10^3/cmm (1.4-6.5) H 08/21/24 05:16 Segmented Neutrophils 70 % 08/21/24 05:16 Band Neutrophils 10.0 % 08/21/24 05:16 Absolute Lymphocytes 1.9 10^3/cmm (1.2-3.4) 08/21/24 05:16 Lymphocytes (Manual) 13 % 08/21/24 05:16 Monocytes (Manual) 0.0 % 08/21/24 05:16 Absolute Monocytes 0.0 10^3/cmm (0.1-0.6) L 08/21/24 05:16 Eosinophils (Manual) 1 % 08/21/24 05:16 Absolute Eosinophils 0.1 10^3/cmm (0.0-0.7) 08/21/24 05:16 Basophils (Manual) 0.0 % 08/21/24 05:16 Absolute Basophils 0.0 10^3/cmm (0.0-0.2) 08/21/24 05:16 Myelocytes 6.0 % 08/21/24 05:16 Nucleated RBCs # 0.0 /100WBC 08/20/24 05:17 Platelet Estimate Normal (Normal) 08/21/24 05:16 Macrocytosis 1+ H 08/21/24 05:16 ESR 50 mm/hr (0-15) H 08/17/24 13:50 Sodium 141 mmol/L (136-145) 08/21/24 05:16 Potassium 4.2 mmol/L (3.5-5.1) 08/21/24 05:16 Chloride 103 mmol/L (98-107) 08/21/24 05:16 Carbon Dioxide 26 mmol/L (22-29) 08/21/24 05:16 Anion Gap 16.2 (5-19) 08/21/24 05:16 BUN 17 mg/dL (8-23) 08/21/24 05:16 Creatinine 0.7 mg/dL (0.5-0.9) 08/21/24 05:16 GFR Calculation 84.2 mL/min (90-130) L 08/21/24 05:16 Glucose 144 mg/dL (65-115) H 08/21/24 05:16 Estimat Average Glucose 120 08/17/24 13:50 Hemoglobin A1c 5.8 % (4.0-6.0) 08/17/24 13:50 Calculated Osmolality 296 mOsm/kg (285-295) H 08/21/24 05:16 Lactic Acid 1.2 mmol/L (0.5-2.2) 08/17/24 16:58 Calcium 9.9 mg/dL (8.5-10.5) 08/21/24 05:16 Total Bilirubin 0.2 mg/dL (0.15-1.2) 08/20/24 05:17 AST 17 U/L (0-32) 08/20/24 05:17 ALT 18 U/L (0-33) 08/20/24 05:17 Alkaline Phosphatase 90 U/L (35-105) 08/20/24 05:17 Troponin T 5th Gen ng/L 19 ng/L (0-10) H 08/17/24 21:18 Troponin T Baseline 19 ng/L (0-10) H 08/17/24 16:58 C-Reactive Protein 11.9 mg/L (0.0-4.9) H 08/17/24 13:50 NT-Pro-B Natriuret Pep 281 pg/mL (0-125) H 08/17/24 13:50 NT-Pro-B Natriuret Pep 282 pg/mL (0-125) H 08/17/24 13:50 Total Protein 7.1 g/dL (6.6-8.7) 08/20/24 05:17 Albumin 3.3 g/dL (3.5-5.2) L 08/20/24 05:17 Globulin 3.8 g/dL (1.3-4.6) 08/20/24 05:17 Triglycerides 96 mg/dL (0-150) 08/17/24 13:50 Cholesterol 134 mg/dL (0-200) 08/17/24 13:50 LDL Cholesterol, Calc 73 mg/dL (50-129) 08/17/24 13:50 HDL Cholesterol 42 mg/dL (60-100) L 08/17/24 13:50 LDL/HDL Ratio 1.74 RATIO (0.00-3.22) 08/17/24 13:50 Cholesterol/HDL Ratio 3.19 mg/dL (0.0-4.40) 08/17/24 13:50 Procalcitonin 0.44 ng/mL (0-0.5) 08/17/24 13:50 TSH 2.62 uIU/mL (0.27-4.20) 08/17/24 13:50 Urine Color Yellow (Yellow) 08/17/24 14:48 Urine Appearance Clear (CLEAR) 08/17/24 14:48 Urine pH 6.5 (5-7) 08/17/24 14:48 Ur Specific [place] 1.013 (1.005-1.030) 08/17/24 14:48 Urine Protein 2+ (Negative) A 08/17/24 14:48 Urine Glucose (UA) Negative (Normal) 08/17/24 14:48 Urine Ketones Negative (Negative) 08/17/24 14:48 Urine Blood 3+ (Negative) A 08/17/24 14:48 Urine Nitrate Negative (Negative) 08/17/24 14:48 Urine Bilirubin Negative (Negative) 08/17/24 14:48 Urine Urobilinogen 1.0 mg/dL (Negative) 08/17/24 14:48 Ur Leukocyte Esterase Negative (Negative) 08/17/24 14:48 Urine RBC 51-100 /hpf (0-2) H 08/17/24 14:48 Urine WBC 0-5 /hpf (0-5) 08/17/24 14:48 Ur Squamous Epith Cells 0-5 /hpf (0-5) 08/17/24 14:48 Amorphous Sediment Not Reportable 08/17/24 14:48 Urine Bacteria None seen /hpf (NONE) 08/17/24 14:48 Hyaline Casts 0.81 /lpf 08/17/24 14:48 Influenza A (PCR) Positive (Negative) 08/17/24 14:08 Influenza Type B (PCR) Negative (Negative) 08/17/24 14:08 RSV (PCR) Negative (Negative) 08/17/24 14:08 SARS-CoV-2 (PCR) Positive (Negative) A 08/17/24 14:08 Vitals Last Vital Signs Temp 98.0 F 08/21/24 07:58 Pulse 81 08/21/24 08:58 Resp 18 08/21/24 08:58 BP 171/86 08/21/24 08:38 Pulse Ox 99 08/21/24 08:58 O2 Del Method Room Air 08/21/24 08:58 O2 Flow Rate 2 08/20/24 20:40 Discharge Plan Discharge Patient Disposition: Home Condition: Stable Prescriptions: New chlorthalidone 25 mg Tablet 25 mg PO DAILY 30 Days Qty: 30 0RF amlodipine 10 mg Tablet 10 mg PO DAILY 30 Days Qty: 30 0RF benzonatate 100 mg Capsule 100 mg PO TID PRN (Reason: Cough) 7 Days Qty: 21 0RF oseltamivir 75 mg Capsule 75 mg PO BID 1 Days Qty: 2 0RF doxycycline hyclate 100 mg tablet 100 mg PO BID 3 Days Qty: 6 0RF albuterol sulfate [Ventolin HFA] 90 mcg/actuation HFA aerosol inhaler 1 inh inhalation Q6H PRN (Reason: shortness of breath or wheezing) Qty: 8.5 0RF fluticasone propion-salmeterol [Advair Diskus] 100-50 mcg/dose blister with device 1 inh inhalation DAILY Qty: 60 0RF aspirin 81 mg tablet 81 mg PO DAILY 30 Days Qty: 30 0RF dexamethasone 6 mg tablet 6 mg PO DAILY 3 Days Qty: 3 0RF clonidine HCl 0.1 mg tablet 0.1 mg PO Q12H 30 Days Qty: 60 0RF Continued lovastatin 20 mg tablet 20 mg PO DAILY Qty: 90 3RF escitalopram oxalate 20 mg tablet 20 mg PO DAILY Qty: 90 3RF losartan 100 mg tablet 100 mg PO DAILY Qty: 30 1RF loratadine [Claritin] 10 mg Tablet 10 mg PO DAILY PRN (Reason: allergies) zolpidem [Ambien] 10 mg tablet 10 mg PO .nightly Qty: 30 5RF Discharge Orders: Discharge Order (Routine); Ordered 08/21/24 Ordered By: Óscar Parsons Referrals: Brooke Pedro MD [Hospitalist, Oncology] - 08/25/24 1:15 pm Referral Note: go over Javier Ortiz DO [Primary Care Provider, Family Practice] - 08/20/24 9:20 am Discharge Diet: Cardiac Discharge Activity: Resume usual activity Patient Instructions: Benzonatate (By mouth), Clonidine (By mouth), Doxycycline (By mouth), Albuterol (By breathing), Aspirin (By mouth), Chlorthalidone (By mouth), Amlodipine (By mouth), Dexamethasone (By mouth), Oseltamivir (By mouth), Fluticasone/Salmeterol (By breathing), Flu - Adult, Pneumonia (DC), COVID-19 (Coronavirus Disease 2019) (DC), Opioid Safety Activity Restrictions/Additional Instructions: -continue to be ambulatory -monitor for signs of dvt or pulmonary embolism. such as calf pain or calf swelling or bloody cough, if so go to emergency room - For your hematuria, please follow-up with primary care provider, consider repeating urinalysis in 1 month, - For your enlarged lymph nodes in your chest, consider repeating CT chest in 4 to 6 weeks - Follow-up with Dr. Pedro Discharge Attestations Time Spent in Discharge Care*: greater than 30 min Quality Metrics Clinical Quality Measures [ No reported AMI, CVA or VTE this stay] Coding Level of Care Code 13195 Total time (in minutes) for Discharge: 45 Diagnoses Acute hypoxic respiratory failure J96.01 Pneumonia due to COVID-19 virus U07.1; J12.82 Influenza A J10.1 Secondary bacterial pneumonia J15.9
[2024-08-21 12:48] LABS: COMPLEMENT, TOTAL (CH50) 50 U/mL (31-60)
[2024-08-21 15:04] LABS: COMPLEMENT COMPONENT C3C 176 mg/dL (83-193); COMPLEMENT COMPONENT C4C 29 mg/dL (15-57)
[2024-08-21] MEDS: remdesivir 100 MG in sodium chloride 0.9% (100 ml) 80 ML IV (15:51)
[2024-08-22 03:28] LABS: Lyme AB Screen <0.90 index
[2024-08-22 03:39] LABS: CENTROMERE B ANTIBODY <1.0 NEG AI (<1.0 NEG); JO-1 ANTIBODY <1.0 NEG AI (<1.0 NEG); RNP ANTIBODY <1.0 NEG AI (<1.0 NEG); SCL-70 ANTIBODY <1.0 NEG AI (<1.0 NEG); SJOGREN'S ANTIBODY (SS-A) <1.0 NEG AI (<1.0 NEG); SM ANTIBODY <1.0 NEG AI (<1.0 NEG); SS-B <1.0 NEG AI (<1.0 NEG)
[2024-08-25 15:29] LABS: ANA SCREEN, IFA NEGATIVE (NEGATIVE)
[2024-08-25 15:45] LABS: DNA AB (DS) CRITHIDIA,IFA NEGATIVE (NEGATIVE)
[2024-08-25 18:46] LABS: RMSF IGG NOT DETECTED; RMSF IGM NOT DETECTED
[2024-08-26 07:40] LABS: THYROID PEROXIDASE ANTIBODIES <1 IU/mL (<9)
[2024-08-27 18:15] LABS: E. Chaffeensis AB IGG <1:64; E. Chaffeensis AB IGM <1:20
== END 2024-08-21 17:25 | disposition home or self-care (01) | DRG 177 ==
LOC: ER 19:54 → MEDSURG 20:28
PROVIDERS: Admitting Provider Family Medicine; Emergency Provider Emergency Medicine; PCP Family Medicine; Visit Provider Family Medicine
DX: U07.1 COVID-19 (principal); J12.82 Pneumonia due to coronavirus disease 2019; J96.01 Acute respiratory failure with hypoxia; J15.9 Unspecified bacterial pneumonia; N13.30 Unspecified hydronephrosis; J10.1 Influenza due to other identified influenza virus with other respiratory manifestations; I10 Essential (primary) hypertension; E78.5 Hyperlipidemia, unspecified; R31.9 Hematuria, unspecified; G47.00 Insomnia, unspecified; F41.8 Other specified anxiety disorders; Z79.82 Long term (current) use of aspirin
CPT/HCPCS: 36415; 70450; 71045; 71275; 76770; 80048; 80053; 80061; 81001; 83036; 83605; 83880; 84145; 84443; 84484; 85007; 85025; 85651; 86140; 86160; 86162; 86235; 86255; 86376; 86403; 86618; 86666; 86757; 87040; 87070; 87086; 87205; 87449; 87637; 93005; 93306; 94640; 94664; 94760; 96372; 96374; 96375; 99285; J0248; J0456; J0696; J1100; J1650; J1885; J2270; J2405; J2470; J7030; J7050; J7626; J9999; Q0144

== ENCOUNTER 2024-12-29 12:01 | Oncology outpatient (recurring) (ONCR) | payer OTHER, SELFPAY ==
[2024-12-29 12:23] LABS: Hematocrit 35.3 % (36-47); Hemoglobin 11.70 g/dL (11.27-16.99); Mean Corpuscular HGB Conc 33.1 g/dL (30-55); Mean Corpuscular Hemoglobin 33.1 pg (27-33); Mean Corpuscular Volume 99.7 fl (85-98); Nucleated Red Blood Cells % 0.2 %; Platelet Count 320 10^3/cmm (157-399); Red Blood Count 3.54 10^6/uL (3.85-5.65); White Blood Count 10.98 10^3/uL (3.29-11.43)
[2024-12-29 12:50] LABS: Alanine Aminotransferase 19 U/L (0-33); Albumin Level 4.0 g/dL (3.5-5.2); Alkaline Phosphatase 81 U/L (35-105); Anion Gap 16.6 (5-19); Aspartate Amino Transferase 19 U/L (0-32); Blood Urea Nitrogen 14 mg/dL (8-23); Calcium 9.7 mg/dL (8.5-10.5); Carbon Dioxide 27 mmol/L (22-29); Chloride 103 mmol/L (98-107); Creatinine Clr Calc Pharmacy 89.3140; Ferritin 172 ng/mL (15-150); Globulin 3.1 g/dL (1.3-4.6); Glucose 103 mg/dL (65-115); Iron 113 ug/dL (37-145); Osmolality Calculated 297 mOsm/kg (285-295); Potassium 3.6 mmol/L (3.5-5.1); Sodium 143 mmol/L (136-145); Total Iron Binding Capacity 283 mcg/dl; Total Protein 7.1 g/dL (6.6-8.7); Unsaturated Iron Binding 170 ug/dL (112-347)
[2024-12-29 13:06] LABS: Vitamin B12 355 pg/mL (232-1245)
== END 2025-01-23 23:59 | disposition home or self-care (01) ==
PROVIDERS: PCP Family Medicine; Visit Provider Internal Medicine Medical Oncology
DX: R91.8 Other nonspecific abnormal finding of lung field (principal); D72.829 Elevated white blood cell count, unspecified; D75.89 Other specified diseases of blood and blood-forming organs
CPT/HCPCS: 36415; 80053; 82607; 82728; 82746; 83540; 83550; 85025